=== PATIENT | female | born 1940 | race African-American/Black ===

== ENCOUNTER 2016-12-17 14:48 | Emergency (ER) | payer MEDICARE, OTHER ==
[~2016-12-17] VITALS: Ht 165.1 cm; Wt 98.4 kg
[~2016-12-17 14:48] MED LIST: ADVIL200 MG PO; AMITIZA24 MCG ORAL; ATENOLOL25 MG PO; ATENOLOL50 MG ORAL; BENADRYL50 MG PO; BP med; ENALAPRIL MALEA10 MG ORAL; HYDROCHLOROTHIA25 MG PO; LACTULOSE20 GM/301 ORAL; LEVOTHYROXINE100 MCG ORAL; LINZESS145 MCG PO; METOCLOPRA10 MG/10 M ORAL; MILK OF MA400 MG/51 ORAL; NAPROXEN375 MG ORAL; OMEPRAZOLE20 M2 ORAL; OXYCONTIN20 MG PO; POTASSIUM99 M3 PO; PREDNISONE20 MG PO; PROTONIX40 MG ORAL; REGLAN5 MG ORAL; SYNTHROID100 MCG ORAL; THEOPHYLLI80 MG/151 PO; TRAMADOL HCL50 MG ORAL; [UNRECOGNIZED DRUG - REMARK]
[2016-12-17] MEDS ORDERED: Famotidine 20 MG/ 2ML VIAL IVP ONE (16:15)
[2016-12-17 16:47] LABS: APPEARANCE,URINE CLEAR; KETONES,URINE NEGATIVE (NEGATIVE); LEUKOCYTE ESTERASE ,URINE 3+ (NEGATIVE); NITRITE,URINE NEGATIVE (NEGATIVE); PH,URINE 5 (4.5-8.0); PROTEIN,URINE NEGATIVE (NEGATIVE); UROBILINOGEN,URINE NORMAL MG/DL (0.0-1.0)
[2016-12-17 16:50] VITALS: BP 126/69
[2016-12-17 16:56] LABS: AMORPHOUS SEDIMENT,UR FEW /LPF; BACTERIA,URINE MODERATE /HPF; SQUAMOUS EPITHELIAL CELL,UR FEW /LPF (NONE/OCC)
[2016-12-17 17:25] LABS: BASOPHILS % (AUTO) 2.7 % (0.0-2.0); EOSINOPHILS % (AUTO) 2.3 % (0.0-3.0); LYMPHOCYTES % (AUTO) 40.4 % (20.0-45.0); MEAN CORPUSCULAR HEMOGLOBIN 26.6 PG (27.0-31.0); MEAN CORPUSCULAR HGB CONC 30.4 G/DL (32.0-36.0); MEAN CORPUSCULAR VOLUME 88 FL (80-99); MEAN PLATELET VOLUME 6.9 FL (6.5-10.1); MONOCYTES % (AUTO) 9.3 % (1.0-10.0); NEUTROPHILS % (AUTO) 45.4 % (45.0-75.0); PLATELET COUNT 263 K/UL (150-450); RED BLOOD COUNT 5.03 M/UL (4.20-5.40); RED CELL DISTRIBUTION WIDTH 12.3 % (11.6-14.8); WHITE BLOOD COUNT 7.9 K/UL (4.8-10.8)
[2016-12-17 17:29] LABS: TROPONIN I < 0.30 ng/mL (<=0.30)
[2016-12-17 17:32] LABS: ALANINE AMINOTRANSFERASE 8 U/L (3-33); ALBUMIN/GLOBULIN RATIO 1.2 (1.0-2.7); ANION GAP 16 (5-15); ASPARTATE AMINO TRANSFERASE 13 U/L (5-40); CALCIUM 10.1 mg/dL (8.6-10.2); CARBON DIOXIDE 29 mEQ/L (20-30); CHLORIDE 96 mEQ/L (98-107); CREATININE 0.8 mg/dL (0.5-0.9); HEMOLYSIS 3; LIPASE 37 U/L (< 60); POTASSIUM 3.3 mEQ/L (3.4-4.9); SODIUM 141 mEQ/L (135-145); TOTAL PROTEIN 7.9 g/dL (6.6-8.7)
[2016-12-17 17:43] LABS: CKMB < 1.5 ng/mL (< 3.8)
[2016-12-17] MEDS ORDERED: KEFLEX500 MG ORAL (17:59)
[2016-12-17] MEDS ORDERED: RANITIDINE HCL150 MG ORAL (17:59)
[2016-12-17 18:12] VITALS: BP 121/64
--- NOTE | 2016-12-17 22:40 | Emergency Room Report ---
History of Present Illness General Chief Complaint: Abdominal Pain Source: Patient, Medical Record Present Illness HPI 76-year-old female presents ED complaining of abdominal pain. States symptoms started today. Notes pain which is epigastric, 7/10, sharp, nonradiating. No other aggravating or leading factors. Notes history of ulcers. Denies chest pain or shortness of breath. Notes nausea, denies vomiting. No other aggravating relieving factors. Denies any other associated symptoms. GI is Dr Olson Allergies: Coded Allergies: Cat Dander (Verified Allergy, Severe, 06/19/14) SHORTNESS OF BREATH, SWELLING CODEINE (Verified Allergy, Unknown, 06/19/14) HEADACHES IODINE (Verified Allergy, Unknown, 06/19/14) SWELLING Patient History Past Medical History: HTN, asthma Past Surgical History: none Pertinent Family History: none Social History: Denies: alcohol use, drug use, smoking Now: No Immunizations: UTD Reviewed Nursing Documentation: PMH: Agreed, PSxH: Agreed Nursing Documentation-PMH Hx Hypertension: Yes Hx Pacemaker: No Hx Asthma: Yes Hx COPD: No Hx Diabetes: No Hx Cancer: No Hx Gastrointestinal Problems: Yes Hx Dialysis: No Hx Cerebrovascular Accident: No Hx Seizures: No Hx Headaches: Yes Review of Systems All Other Systems: negative except mentioned in HPI Physical Exam Vital Signs Date Time Temp Pulse Resp B/P Pulse Ox O2 Delivery O2 Flow Rate FiO2 12/17/16 15:19 98.2 64 16 135/76 99 Room Air Sp02 EP Interpretation: reviewed, normal General Appearance: no apparent distress, alert, GCS 15, non-toxic Head: normocephalic, atraumatic Eyes: bilateral eye PERRL, bilateral eye normal inspection ENT: hearing grossly normal, normal pharynx, no angioedema, normal voice Neck: full range of motion, supple/symm/no masses Respiratory: chest non-tender, lungs clear, normal breath sounds, speaking full sentences Cardiovascular #1: regular rate, rhythm, no edema Cardiovascular #2: 2+ carotid (R), 2+ carotid (L), 2+ radial (R), 2+ radial (L) , 2+ dorsalis pedis (R), 2+ dorsalis pedis (L) Gastrointestinal: normal bowel sounds, soft, non-distended, no guarding, no rebound, tenderness - epigastric Rectal: deferred Genitourinary: normal inspection, no CVA tenderness Musculoskeletal: back normal, gait/station normal, normal range of motion, non- tender Neurologic: alert, oriented x3, responsive, motor strength/tone normal, sensory intact, speech normal Psychiatric: judgement/insight normal, memory normal, mood/affect normal, no suicidal/homicidal ideation Reflexes: 3+ bicep (R), 3+ bicep (L), 3+ tricep (R), 3+ tricep (L), 3+ knee (R) , 3+ knee (L) Skin: normal color, no rash, warm/dry, well hydrated Lymphatic: no adenopathy Medical Decision Making Diagnostic Impression: Primary Impression: GERD (gastroesophageal reflux disease) Qualified Codes: K21.9 - Gastro-esophageal reflux disease without esophagitis ER Course Hospital Course 76-year-old F presents to ED with epigastric pain with N/V. differential diagnosis: gastritis, SBO, cholecystits Clinical course Patient placed on stretcher. On manager customer. After initial history and physical I ordered labs, IV fluids, Zofran and pepcid Labs - no leukocytosis, no electrolyte abnormalities, LFTs normal, UA unremarkable EKG - NSR, no acute changes Upon reassessment, patient states pain has improved. findings consistent with gastritis Case discussed with Dr Olson and he agreed patient can be safely discharged home I feel this is a highly complex case requiring extensive working including EKG/ Rhythm strip, Xray/CT/US, Blood/urine lab work, repeat exams while in ED, and administration of strong opiates/narcotics for pain control, admission to hospital or close patient follow up. Diagnosis - GERD Stable and discharged to home with prescriptions for Zantac, zofran. Followup with PMD. Return to ED if symptoms recur or worsen Labs Test 12/17/16 16:20 12/17/16 16:46 Urine Color Pale yellow Urine Appearance Clear Urine pH 5 (4.5-8.0) Urine Specific [place] 1.015 (1.005-1.035) Urine Protein Negative (NEGATIVE) Urine Glucose (UA) Negative (NEGATIVE) Urine Ketones Negative (NEGATIVE) Urine Occult Blood 2+ (NEGATIVE) Urine Nitrite Negative (NEGATIVE) Urine Bilirubin Negative (NEGATIVE) Urine Urobilinogen Normal MG/DL (0.0-1.0) Urine Leukocyte Esterase 3+ (NEGATIVE) Urine RBC 5-10 /HPF (0 - 2) Urine WBC 10-15 /HPF (0 - 2) Urine Squamous Epithelial Cells Few /LPF (NONE/OCC) Urine Amorphous Sediment Few /LPF (NONE) Urine Bacteria Moderate /HPF (NONE) White Blood Count 7.9 K/UL (4.8-10.8) Red Blood Count 5.03 M/UL (4.20-5.40) Hemoglobin 13.4 G/DL (12.0-16.0) Hematocrit 44.1 % (37.0-47.0) Mean Corpuscular Volume 88 FL (80-99) Mean Corpuscular Hemoglobin 26.6 PG (27.0-31.0) Mean Corpuscular Hemoglobin Concent 30.4 G/DL (32.0-36.0) Red Cell Distribution Width 12.3 % (11.6-14.8) Platelet Count 263 K/UL (150-450) Mean Platelet Volume 6.9 FL (6.5-10.1) Neutrophils (%) (Auto) 45.4 % (45.0-75.0) Lymphocytes (%) (Auto) 40.4 % (20.0-45.0) Monocytes (%) (Auto) 9.3 % (1.0-10.0) Eosinophils (%) (Auto) 2.3 % (0.0-3.0) Basophils (%) (Auto) 2.7 % (0.0-2.0) Sodium Level 141 mEQ/L (135-145) Potassium Level 3.3 mEQ/L (3.4-4.9) Chloride Level 96 mEQ/L (98-107) Carbon Dioxide Level 29 mEQ/L (20-30) Anion Gap 16 (5-15) Blood Urea Nitrogen 11 mg/dL (7-23) Creatinine 0.8 mg/dL (0.5-0.9) Estimat Glomerular Filtration Rate mL/min (>60) Glucose Level 104 mg/dL (74-106) Calcium Level 10.1 mg/dL (8.6-10.2) Total Bilirubin 0.5 mg/dL (0.0-1.2) Aspartate Amino Transf (AST/SGOT) 13 U/L (5-40) Alanine Aminotransferase (ALT/SGPT) 8 U/L (3-33) Alkaline Phosphatase 100 U/L (35-104) Creatine Kinase MB < 1.5 ng/mL (< 3.8) Troponin I < 0.30 ng/mL (<=0.30) Total Protein 7.9 g/dL (6.6-8.7) Albumin 4.4 g/dL (3.5-5.2) Globulin 3.5 g/dL Albumin/Globulin Ratio 1.2 (1.0-2.7) Lipase 37 U/L (< 60) EKG Diagnostic Results Rate: normal Rhythm: NSR ST Segments: no acute changes ASA given to the pt in ED: No Rhythm Strip Diag. Results EP Interpretation: yes Rhythm: NSR, no PVC's, no ectopy Last Vital Signs Date Time Temp Pulse Resp B/P Pulse Ox O2 Delivery O2 Flow Rate FiO2 12/17/16 18:12 98.3 68 16 121/64 99 Room Air Status: improved Disposition: HOME, SELF-CARE Condition: Stable Scripts Cephalexin* (KEFLEX*) 500 Mg Capsule 500 MG ORAL Q6H, #28 CAP 0 Refills Prov: TONYA ZELAYA M.D. 12/17/16 Ranitidine Hcl* (ZANTAC*) 150 Mg Tablet 150 MG ORAL TWICE A DAY, #30 TAB Prov: TONYA ZELAYA M.D. 12/17/16 Referrals: NON PHYSICIAN (PCP) Patient Instructions: Gastritis, Adult TONYA ZELAYA M.D. Dec 17, 2016 22:40
--- NOTE | 2016-12-20 14:00 | Cardiology Report ---
APPROVED REPORT EKG Measurement Heart [id number] Normal sinus rhythm Nonspecific T wave abnormality Abnormal ECG
[2016-12-20] MEDS ORDERED: NORCO 10-325 T1 EACH ORAL (14:11)
[2016-12-20] MEDS ORDERED: NORVASC10 MG ORAL (14:11)
[2016-12-24] MEDS ORDERED: AMITIZA24 MCG ORAL (09:50)
== END 2016-12-17 18:14 | disposition home or self-care (01) ==
LOC: EMR 17:00
DX: K21.9 Gastro-esophageal reflux disease without esophagitis (principal); Z88.5 Allergy status to narcotic agent; R10.9 Unspecified abdominal pain; I10 Essential (primary) hypertension; J45.909 Unspecified asthma, uncomplicated; Z87.19 Personal history of other diseases of the digestive system; Z86.69 Personal history of other diseases of the nervous system and sense organs
CPT/HCPCS: 36415; 80053; 81003; 82553; 83690; 84484; 85025; 87086; 93005; 96360; 96374; 96375; 99284; J2405; J7040; S0028

== ENCOUNTER → 2016-12-20 | Outpatient (CLI) | payer MEDICARE, OTHER ==
[~2016-12-20] MED LIST changes: +KEFLEX500 MG ORAL; +NORCO 10-325 T1 EACH ORAL; +NORVASC10 MG ORAL; +RANITIDINE HCL150 MG ORAL
--- NOTE | 2016-12-20 14:09 | GI Progress Note ---
Assessment/Plan Problems: (1) Gastritis ICD Codes: K29.70 - Gastritis, unspecified, without bleeding SNOMED: 1953934 (2) GERD (gastroesophageal reflux disease) ICD Codes: K21.9 - GERD (gastroesophageal reflux disease) SNOMED: 206103229 (3) Chronic back pain ICD Codes: G89.29 - Other chronic pain; M54.9 - Chronic back pain SNOMED: 691889919 (4) Opiate dependence (5) Constipation ICD Codes: K59.00 - Constipation SNOMED: 90668463 Status: unchanged Status Narrative Seen with Dr. Olson. Assessment/Plan EGD scheduled for 12/23/16 - NPO @ MI day prior procedure acknowledged by patient. ordered abdominal U/S r/o gallstone dc amitiza >> trial period Movantik 25 mg PO BID cont prilosec 40 + H2 The patient was seen and examined at bedside and all new and available data was reviewed in the patients chart. I agree with the above findings, impression and plan. (Patient seen earlier today. Signature stamp does not reflect patient encounter time.). -Ignacio Olson MD Subjective Subjective abdominal pain >> epigastric, lower abdomen GERD chronic constipation, amitiza not working >> last BM yesterday large started last tuesday s/p [place] ER visit dx with gastritis >> ranitidine + Keflex s/p EGD/colon 06/2014 >> 2cm HH, gastritis, 1 polyp Objective T 98.5 BP 134/76 P 59 98 RA Denies weight loss General Appearance: no apparent distress, alert, overweight Cardiovascular: normal rate Respiratory/Chest: normal breath sounds, no respiratory distress Abdominal Exam: normal bowel sounds, non tender, soft Extremities: normal range of motion Objective Endoscopy Procedure Note Indication for Procedure: screening colon, GERD Procedures Performed: EGD, colonoscopy Operative Findings/Diagnosis: one polyp, hemorrhoids, gastritis IGNACIO OLSON - Jun 19, 2014 11:47 Deb Lanza N.PVashti Dec 20, 2016 14:09 IGNACIO OLSON Dec 21, 2016 12:42
[2016-12-20 15:24] VITALS: BP 134/76
== END | disposition home or self-care (01) ==
LOC: PAN 13:36
DX: K29.70 Gastritis, unspecified, without bleeding (principal); K21.9 Gastro-esophageal reflux disease without esophagitis; G89.29 Other chronic pain; M54.9 Dorsalgia, unspecified; F11.20 Opioid dependence, uncomplicated; K59.00 Constipation, unspecified
CPT/HCPCS: 99211

== ENCOUNTER → 2016-12-24 | Day surgery (SDC) | payer MEDICARE, OTHER ==
[~2016-12-24] VITALS: Ht 165.1 cm; Wt 98.4 kg
[2016-12-24] VITALS (9 sets, daily range): BP systolic 100–140; BP diastolic 62–85
[~2016-12-24] MED LIST changes: +Hydromorphone 0.5mg/0.5ml inj IVP PRN; +Ketorolac 30mg Inj IV PRN; +Lidocaine 1% MPF 10mg/ml 5ml ONE; +Norco 5mg/325mg tab ORAL PRN; +Propofol 10mg/ml 20ml IV ONE; +fentaNYL 100 mcg/2 mL IV PRN
--- NOTE | 2016-12-24 10:07 | Pre-Procedure Note/Attestation ---
Pre-Procedure Note/Attestation Complete Prior to Procedure Planned Procedure: not applicable Procedure Narrative: egd Indications for Procedure Pre-Operative Diagnosis: gerd Attestation I attest that I discussed the nature of the procedure; its benefits; risks and complications; and alternatives (and the risks and benefits of such alternatives ), prior to the procedure, with the patient (or the patient's legal billing representative). I attest that, if there was a reasonable possibility of needing a blood transfusion, the patient (or the patient's legal billing representative) was given the [facility] standardized written summary, pursuant to the P[place]rez [place]vin Blood Safety Act ([place] Health and Safety Code # 1645, as amended). I attest that I re-evaluated the patient just prior to the surgery and that there has been no change in the patient's H&P, except as documented below: TOMASA KNOWLES Dec 24, 2016 10:07
--- NOTE | 2016-12-24 10:08 | Short Stay Surgery H&P ---
History of Present Illness History of Present Illness Chief Complaint see recent consult note HPI Matias Almonte is a 76 year old female who was admitted on for Abdominal Pain , R/O Gallstones Patient History Allergies: Coded Allergies: Cat Dander (Verified Allergy, Severe, 06/19/14) SHORTNESS OF BREATH, SWELLING CODEINE (Verified Allergy, Unknown, 06/19/14) HEADACHES IODINE (Verified Allergy, Unknown, 06/19/14) SWELLING PAST MEDICAL HISTORY: Past Surgeries: Social History: Medication History Scheduled Amlodipine Besylate (Norvasc), 10 MG ORAL DAILY, (Reported) Atenolol* (Tenormin*), 50 MG ORAL DAILY, (Reported) Hydrochlorothiazide* (Hydrochlorothiazide*), 25 MG PO DAILY, (Reported) Levothyroxine Sodium* (Synthroid*), 150 MCG ORAL DAILY, (Reported) Lubiprostone (Amitiza*), 24 MCG ORAL EVERY 12 HOURS, (Reported) Omeprazole (Omeprazole), 40 MG ORAL DAILY, (Reported) Ranitidine Hcl* (Zantac*), 150 MG ORAL TWICE A DAY Scheduled PRN Hydrocodone Bit/Acetaminophen 10-325* ([place] 10-325*), 1 TAB ORAL Q6H PRN, ( Reported) Miscellaneous Medications Potassium Gluconate (Potassium), 99 MG PO, (Reported) Discontinued Medications Cephalexin* (Keflex*), 500 MG ORAL Q6H Discontinued Reason: Therapy completed Diphenhydramine HCl (Diphenhydramine HCl), 50 MG PO Q6H Discontinued Reason: Therapy completed Lubiprostone (Amitiza*), 24 MCG ORAL DAILY, (Reported) Discontinued Reason: MD discontinued med Tramadol Hcl* (Ultram*), 50 MG ORAL Q6H PRN for For Pain, (Reported) Discontinued Reason: MD discontinued med Physical Exam Vital Signs Last Vital Signs Date Time Temp Pulse Resp B/P Pulse Ox O2 Delivery O2 Flow Rate FiO2 12/24/16 09:21 97.7 60 18 129/72 99 Room Air Plan Attestation Are the patient's medical conditions optimized for surgery? TOMASA KNOWLES Dec 24, 2016 10:08
--- NOTE | 2016-12-24 10:42 | Anethesia Preoperative Eval ---
Anesthesia Pre-op PMH/ROS General Date of Evaluation: Dec 24, 2016 Time of Evaluation: 10:30 Anesthesiologist: Yonis ASA Score: ASA 3 Mallampati Score Class I : Soft palate, uvula, fauces, pillars visible Class II: Soft palate, uvula, fauces visible Class III: Soft palate, base of uvula visible Class IV: Only hard plate visible Mallampati Classification: Class II Surgeon: Wesley Diagnosis: PUD Surgical Procedure: EGD Family History: no anesthesia problems Allergies: Coded Allergies: Cat Dander (Verified Allergy, Severe, 06/19/14) SHORTNESS OF BREATH, SWELLING CODEINE (Verified Allergy, Unknown, 06/19/14) HEADACHES IODINE (Verified Allergy, Unknown, 06/19/14) SWELLING Medications: see eMAR Past Medical History Cardiovascular: Reports: HTN Pulmonary: Reports: asthma Gastrointestinal/Genitourinary: Reports: GERD Neurologic/Psychiatric: Denies: CVA, TIA, dementia, depression/anxiety, other Endocrine: Reports: DM, hypothyroidism HEENT: Reports: cataract (L), cataract (R) Hematology/Immune: Denies: DVT, anemia, bleeding disorder, other Musculoskeletal/Integumentary: Reports: DJD Anesthesia Pre-op Phys. Exam Physician Exam Last Vital Signs Date Time Temp Pulse Resp B/P Pulse Ox O2 Delivery O2 Flow Rate FiO2 12/24/16 09:21 97.7 60 18 129/72 99 Room Air Constitutional: NAD Neurologic: CN 2-12 intact Cardiovascular: RRR Respiratory: CTA NAYAN ALEMAN M.D. Dec 24, 2016 10:42
--- NOTE | 2016-12-24 10:46 | Immediate Post-Op Evaluation ---
Immediate Post-Op Evalulation Immediate Post-Op Evalulation Procedure: EGD Date of Evaluation: Dec 24, 2016 Time of Evaluation: 11:00 IV Fluids: 200 Blood Products: 0 Estimated Blood Loss: 0 Urinary Output: 0 Blood Pressure Systolic: 150 Blood Pressure Diastolic: 80 Pulse Rate: 87 Respiratory Rate: 20 O2 Sat by Pulse Oximetry: 97 Temperature (Fahrenheit): 98 Pain Score (1-10): 2 Nausea: No Vomiting: No Complications na Patient Status: awake Hydration Status: adequate Given Within 1 Hr of Incision: NAYAN Zayas M.D. Dec 24, 2016 10:46
--- NOTE | 2016-12-24 10:47 | Endoscopy Procedure Note ---
Endoscopy Procedure Note Indication for Procedure: gerd Procedures Performed: EGD Operative Findings/Diagnosis: gastritis Specimen: yes Pt Tolerated Procedure Well: Yes Estimated Blood Loss: none Anesthesiologist: colette Anesthesia: MAC Implant(s) used?: No 50 yrs or older w/o bx or poly: Not Applicable 10yrs. F/U not recommended: Not Applicable TOMASA KNOWLES Dec 24, 2016 10:47
--- NOTE | 2016-12-24 10:50 | 48 Hour Post Anesthesia Eval ---
Post Anesthesia Evaluation Procedure: EGD Date of Evaluation: Dec 24, 2016 Time of Evaluation: 12:00 Blood Pressure Systolic: 150 0: 80 Pulse Rate: 87 Respiratory Rate: 20 Temperature (Fahrenheit): 98 O2 Sat by Pulse Oximetry: 97 Airway: patent Nausea: No Vomiting: No Pain Intensity: 2 Hydration Status: adequate Cardiopulmonary Status: Stable Mental Status/LOC: patient returned to baseline Follow-up Care/Observations: na Post-Anesthesia Complications: na Follow-up care needed: N/A NAYAN ALEMAN M.D. Dec 24, 2016 10:50
--- NOTE | 2016-12-24 11:58 | Diagnostic Imaging Report ---
Indication: Abdominal pain Technique: Gallo-scale and duplex images of the upper abdomen were obtained Comparison: CT scan dated 08/18/2013 Findings: . Gallbladder is unremarkable, without stones, wall thickening, nor pericholecystic fluid. . Common bile duct measures 7 mm in diameter. No intrahepatic biliary ductal dilatation. Liver demonstrates diffusely increased echogenicity, consistent with diffuse hepatocellular disease, most likely fatty change.. Portal vein and hepatic veins are patent.. Pancreas is unremarkable. Spleen is unremarkable. Left kidney measures 8.9 cm in length. Right kidney measures 11.6 cm length. Both kidneys demonstrate normal echogenicity. There is no hydronephrosis. Left kidney demonstrates a 1.9 cm cyst. Multiple calculi are seen in the left renal sinus.. . Non-aneurysmal abdominal aorta. Impression: Nonobstructing left renal calculi demonstrated, also described on CT scan of 2012. Negative for hydronephrosis. Left renal cyst, also evident on prior CT. Negative for gallstones or dilated ducts Liver demonstrates equivocally diffusely increased echogenicity, if real then consistent with diffuse hepatocellular disease, most likely fatty change.
--- NOTE | 2016-12-24 19:28 | Procedure Note ---
DATE OF PROCEDURE: 12/24/2016 SURGEON: Ignacio Olson M.D. PROCEDURE: Upper endoscopy with biopsy. ANESTHESIOLOGIST: Joe Somers M.D. INSTRUMENT: Olympus adult flexible upper endoscope. INDICATION: Chronic acid reflux disease. REASON FOR PROCEDURE: The procedure, risks, benefits, and possible consequences, including hemorrhage, aspiration, perforation and infection, and alternative treatments, were explained to the patient/legal guardian by Dr. Ignacio Olson and the patient/legal guardian understood and accepted these risks. DESCRIPTION OF PROCEDURE: After informed consent was obtained and the patient was adequately sedated, Olympus upper endoscope was advanced from mouth into the second portion of the duodenum and retroflexion was performed in the stomach. The patient had diffuse gastritis. Random biopsy from antrum of the stomach was obtained to rule out H. pylori infection. The patient also had medium-sized hiatal hernia with the distal esophageal ring. No evidence of any esophagitis. The patient tolerated the procedure well without any complication. SUMMARY OF FINDINGS: 1. Distal esophageal ring. 2. Medium-sized hiatal hernia. 3. Gastritis, status post biopsy. RECOMMENDATIONS: Followup biopsies and treat accordingly. Ignacio Olson M.D. DR: YIN JOB#: [id number] CC:
== END | disposition home or self-care (01) ==
LOC: GAS 08:43
DX: K21.9 Gastro-esophageal reflux disease without esophagitis (principal); K29.50 Unspecified chronic gastritis without bleeding; K44.9 Diaphragmatic hernia without obstruction or gangrene; K22.2 Esophageal obstruction; I10 Essential (primary) hypertension; J45.909 Unspecified asthma, uncomplicated; E11.9 Type 2 diabetes mellitus without complications; E03.9 Hypothyroidism, unspecified; M19.90 Unspecified osteoarthritis, unspecified site
CPT/HCPCS: 43239; 76700; J2704; 94003; 94150

== ENCOUNTER → 2017-01-03 | Outpatient (CLI) | payer MEDICARE, OTHER ==
[~2017-01-03] MED LIST changes: -Hydromorphone 0.5mg/0.5ml inj IVP PRN; -Ketorolac 30mg Inj IV PRN; -Lidocaine 1% MPF 10mg/ml 5ml ONE; -Norco 5mg/325mg tab ORAL PRN; -Propofol 10mg/ml 20ml IV ONE; -fentaNYL 100 mcg/2 mL IV PRN
--- NOTE | 2017-01-03 14:37 | General Progress Note ---
Assessment/Plan Problem List: (1) GERD (gastroesophageal reflux disease) ICD Codes: K21.9 - GERD (gastroesophageal reflux disease) SNOMED: 515200337 (2) Gastritis ICD Codes: K29.70 - Gastritis, unspecified, without bleeding SNOMED: 3959403 (3) HTN (hypertension) ICD Codes: I10 - HTN (hypertension) SNOMED: 57868576 (4) Constipation ICD Codes: K59.00 - Constipation SNOMED: 83275248 (5) Colon polyp ICD Codes: K63.5 - Colon polyp SNOMED: 57340378 (6) Fatty liver ICD Codes: K76.0 - Fatty (change of) liver, not elsewhere classified SNOMED: 080156494 Assessment/Plan breath test fibroscan rtc after above Subjective ROS Limited/Unobtainable: Yes Allergies: Coded Allergies: Cat Dander (Verified Allergy, Severe, 06/19/14) SHORTNESS OF BREATH, SWELLING CODEINE (Verified Allergy, Unknown, 06/19/14) HEADACHES IODINE (Verified Allergy, Unknown, 06/19/14) SWELLING Subjective c/o abd pain and bloading Objective General Appearance: alert EENT: normal ENT inspection Neck: supple Cardiovascular: normal rate Respiratory/Chest: lungs clear Abdomen: normal bowel sounds, non tender, soft Extremities: non-tender TOMASA KNOWLES Jan 03, 2017 14:37
== END | disposition home or self-care (01) ==
LOC: PAN 14:18
DX: K21.9 Gastro-esophageal reflux disease without esophagitis (principal); K29.70 Gastritis, unspecified, without bleeding; I10 Essential (primary) hypertension; K59.00 Constipation, unspecified; K63.5 Polyp of colon; K76.0 Fatty (change of) liver, not elsewhere classified; Z88.6 Allergy status to analgesic agent; Z91.048 Other nonmedicinal substance allergy status
CPT/HCPCS: 99211

== ENCOUNTER → 2017-02-02 | Outpatient (CLI) | payer MEDICARE, OTHER ==
--- NOTE | 2017-02-02 13:32 | Diagnostic Imaging Report ---
Indication: Chronic low back pain Technique: Sagittal T1 and T2 fast spin echo, sagittal STIR, axial T1 and T2 fast spin-echo images of the lumbar spine Comparison: 12/26/2013 Findings: The bony alignment is normal. Vertebral marrow signal is unremarkable. The vertebral body heights are preserved. The disc spaces are preserved. At T12-L1, L1-L2, L2-3, no significant disc bulge or protrusion, spinal stenosis, or neural foraminal stenosis. At L3-4, there is been minimal circumferential annular bulge, ligamentum flavum, and facet hypertrophy which results in borderline narrowing of the spinal canal. The neural foramina are preserved, although there may be very slight compromise of the left neural foramen by the bulging disc. At L4-5, there is mild circumferential annular bulge. Very short pedicles and marked ligamentum flavum hypertrophy results in severe narrowing of the spinal canal at this level, which is narrowed to 4 mm minimum AP dimension. This is also demonstrated on the previous study. This may be slightly more severe than on the prior study. At L5-S1, there is circumferential annular bulge, as well as right subarticular broad-based posterior disc protrusion, the latter associated with a small high intensity zone within the disc. This results in moderate narrowing of the spinal canal as well as compromise of the right lateral recess and mild narrowing of the neural foramen. The left neural foramen is mildly compromised by the bulging disc. Appearance is similar to the previous exam. The included extraspinal soft tissues are unremarkable. Impression: Severe spinal stenosis at L4-5, also demonstrated previously, may be slightly progressive from prior exam of 12/26/2013. Associated mild left neural foraminal compromise Spinal stenosis and right subarticular broad-based posterior disc protrusion at L5-S1, likely compromising the right lateral recess. Associated high intensity zone within the protruding disc. Appearance is similar to the previous exam Borderline spinal stenosis at L3-4, anomaly due to ligamentum flavum hypertrophy, doubt significant neural compromise at this level. No acute pathology
== END | disposition home or self-care (01) ==
LOC: MRI 10:41
DX: M54.5 Low back pain (principal); G89.29 Other chronic pain; M48.06 Spinal stenosis, lumbar region; M48.07 Spinal stenosis, lumbosacral region
CPT/HCPCS: 72148

== ENCOUNTER 2017-05-18 14:11 | Outpatient (CLI) | payer MEDICARE, OTHER ==
--- NOTE | 2017-05-18 15:14 | GI Progress Note ---
Assessment/Plan Problems: (1) Fatty liver ICD Codes: K76.0 - Fatty (change of) liver, not elsewhere classified SNOMED: 800128350 (2) GERD (gastroesophageal reflux disease) ICD Codes: K21.9 - GERD (gastroesophageal reflux disease) SNOMED: 763968449 (3) Gastritis ICD Codes: K29.70 - Gastritis, unspecified, without bleeding SNOMED: 3746878 (4) Constipation ICD Codes: K59.00 - Constipation SNOMED: 63543882 Status: stable Status Narrative Seen with Dr. Olson. Assessment/Plan ordered breath test f/u Fibro scan cont current bowel regime; Amitiza RTC after BT Subjective Subjective abdominal pain, none today constipation >> Amitiza and takes prn; x-lax and mag citrate foul breath fibroscan performed up stairs last tobacco use 1985 Objective T 97.9 BP 122/68 P 61 98 RA WT 216.5 (9 lbs weight loss in past 3 months) General Appearance: no apparent distress, alert Cardiovascular: normal rate Respiratory/Chest: normal breath sounds, no respiratory distress Abdominal Exam: normal bowel sounds, non tender, soft Extremities: normal range of motion Deb Lanza NHannah May 18, 2017 15:14
== END 2017-05-18 14:55 | disposition home or self-care (01) ==
LOC: PAN 14:11
DX: K76.0 Fatty (change of) liver, not elsewhere classified (principal); K21.9 Gastro-esophageal reflux disease without esophagitis; K29.70 Gastritis, unspecified, without bleeding; K59.00 Constipation, unspecified
CPT/HCPCS: 99211

== ENCOUNTER 2018-02-26 13:23 | Emergency (ER) | payer MEDICARE, OTHER ==
[~2018-02-26] VITALS: Ht 167.6 cm; Wt 77.1 kg
--- NOTE | 2018-02-26 13:56 | Emergency Room Report ---
History of Present Illness General Chief Complaint: Pain Source: Patient Present Illness HPI Patient is a 78-year-old female who presents after increased burning sensation to her chest. Patient reports having increased difficulty with breathing. She reports having recent increased exposure to unknown chemicals. The patient states that she had been the having worsening symptoms with the acid reflux after having her blood pressure medication changed to Norvasc. The patient denies any fever. She denies any increased leg swelling. She denies any chest discomfort with exertion.The patient reports having a prior history of hypertension. She states she's had long-standing gastroesophageal reflux disease as well as irritable bowel syndrome. Allergies: Coded Allergies: Cat Dander (Verified Allergy, Severe, 06/19/14) SHORTNESS OF BREATH, SWELLING IODINE (Verified Allergy, Unknown, 06/19/14) SWELLING Patient History Past Medical History: see triage record Reviewed Nursing Documentation: PMH: Agreed; PSxH: Agreed Nursing Documentation-PMH Hx Cardiac Problems: Yes Hx Hypertension: Yes Hx Pacemaker: No Hx Asthma: Yes Hx COPD: No Hx Diabetes: No Hx Cancer: No Hx Gastrointestinal Problems: Yes Hx Dialysis: No Hx Neurological Problems: No Hx Cerebrovascular Accident: No Hx Seizures: No Hx Headaches: Yes Review of Systems All Other Systems: negative except mentioned in HPI Physical Exam Vital Signs Date Time Temp Pulse Resp B/P (MAP) Pulse Ox O2 Delivery O2 Flow Rate FiO2 02/26/18 13:29 98.1 61 20 125/80 99 Room Air 98.1 Sp02 EP Interpretation: reviewed, normal General Appearance: normal inspection, well appearing, no apparent distress, alert, GCS 15, non-toxic Head: atraumatic ENT: normal ENT inspection, hearing grossly normal, normal voice Neck: normal inspection, full range of motion, supple, no bony tend Respiratory: normal inspection, lungs clear, normal breath sounds, no respiratory distress, no retraction, no wheezing Cardiovascular #1: regular rate, rhythm, no edema Gastrointestinal: normal inspection, normal bowel sounds, non tender, soft, no guarding, no hernia Genitourinary: no CVA tenderness Musculoskeletal: normal inspection, back normal, normal range of motion Neurologic: normal inspection, alert, responsive, speech normal Psychiatric: normal inspection, judgement/insight normal, mood/affect normal Skin: normal inspection, normal color, no rash Medical Decision Making Diagnostic Impression: Primary Impression: GERD (gastroesophageal reflux disease) ER Course Patient presented for chest pain. Differential diagnosis included but was not limited to acute coronary syndrome, pulmonary embolism, pneumonia, aortic dissection, shingles, pneumothorax, aortic dissection, esophageal rupture, pericarditis. Because of complexity of patient's case laboratory testing and imaging studies were ordered. The patient was noted to have increased reflux symptoms. The patient was noted to have recently had her calcium channel konrad changes may be increasingly symptoms. The patient stated that she had been having some the issues with the chemicals from her apartment and requested have further workup. Patient was advised follow-up with her primary care physician for further evaluation and treatment as needed. The chest x-ray showed no evidence of acute infiltrate and patient's oxygen saturation is 100% on room air. The patient is advised to follow up with primary care doctor in 1-2 days. Patient is advised to return if any worsening condition or if any changes in status that are concerning. This report is dictated with [employer] chief business development officer software which may occasionally lead to discrepancies related to use of this software. Labs Test 02/26/18 14:10 White Blood Count 7.6 K/UL (4.8-10.8) Red Blood Count 4.52 M/UL (4.20-5.40) Hemoglobin 12.5 G/DL (12.0-16.0) Hematocrit 40.0 % (37.0-47.0) Mean Corpuscular Volume 88 FL (80-99) Mean Corpuscular Hemoglobin 27.6 PG (27.0-31.0) Mean Corpuscular Hemoglobin Concent 31.2 G/DL (32.0-36.0) Red Cell Distribution Width 11.7 % (11.6-14.8) Platelet Count 293 K/UL (150-450) Mean Platelet Volume 7.3 FL (6.5-10.1) Neutrophils (%) (Auto) 46.4 % (45.0-75.0) Lymphocytes (%) (Auto) 41.0 % (20.0-45.0) Monocytes (%) (Auto) 9.2 % (1.0-10.0) Eosinophils (%) (Auto) 1.9 % (0.0-3.0) Basophils (%) (Auto) 1.5 % (0.0-2.0) Sodium Level 141 MMOL/L (136-145) Potassium Level 3.4 MMOL/L (3.5-5.1) Chloride Level 101 MMOL/L (98-107) Carbon Dioxide Level 32 MMOL/L (21-32) Anion Gap 9 mmol/L (5-15) Blood Urea Nitrogen 14 mg/dL (7-18) Creatinine 0.8 MG/DL (0.55-1.30) Estimat Glomerular Filtration Rate mL/min (>60) Glucose Level 107 MG/DL (74-106) Calcium Level 9.4 MG/DL (8.5-10.1) Total Bilirubin 0.4 MG/DL (0.2-1.0) Aspartate Amino Transf (AST/SGOT) 12 U/L (15-37) Alanine Aminotransferase (ALT/SGPT) 16 U/L (12-78) Alkaline Phosphatase 95 U/L (46-116) Total Creatine Kinase 63 U/L (26-308) Creatine Kinase MB 0.7 NG/ML (0.0-3.6) Creatine Kinase MB Relative Index 1.1 Troponin I 0.000 ng/mL (0.000-0.056) Pro-B-Type Natriuretic Peptide 56 pg/mL (0-125) Total Protein 8.1 G/DL (6.4-8.2) Albumin 3.6 G/DL (3.4-5.0) Globulin 4.5 g/dL Albumin/Globulin Ratio 0.8 (1.0-2.7) EKG Diagnostic Results Rate: normal - 55 Rhythm: NSR ST Segments: no acute changes Last Vital Signs Date Time Temp Pulse Resp B/P (MAP) Pulse Ox O2 Delivery O2 Flow Rate FiO2 02/26/18 13:29 98.1 61 20 125/80 99 Room Air 98.1 Status: improved Disposition: HOME, SELF-CARE Condition: Stable Scripts Dicyclomine Hcl* (DICYCLOMINE HCL*) 10 Mg Capsule 10 MG PO QID, #30 CAP Prov: Vicente Solorzano MD 02/26/18 Referrals: Marty Verdugo MD (PCP) Vicente Solorzano MD February 26, 2018 13:55
[2018-02-26] MEDS ORDERED: Lidocaine 2% Visc 15ml soln ORAL ONE (14:00)
[2018-02-26] MEDS ORDERED: Mylanta II UD 30ml ORAL ONE (14:00)
[2018-02-26] MEDS ORDERED: Pantoprazole Inj IVP ONE (14:00)
[2018-02-26] MEDS ORDERED: Dicyclomine HCl 10mg/5ml oral soln ORAL ONE (14:00)
[2018-02-26 14:28] LABS: BASOPHILS % (AUTO) 1.5 % (0.0-2.0); EOSINOPHILS % (AUTO) 1.9 % (0.0-3.0); HEMOGLOBIN 12.5 G/DL (12.0-16.0); MEAN CORPUSCULAR VOLUME 88 FL (80-99); MONOCYTES % (AUTO) 9.2 % (1.0-10.0); NEUTROPHILS % (AUTO) 46.4 % (45.0-75.0); PLATELET COUNT 293 K/UL (150-450); RED BLOOD COUNT 4.52 M/UL (4.20-5.40); RED CELL DISTRIBUTION WIDTH 11.7 % (11.6-14.8); WHITE BLOOD COUNT 7.6 K/UL (4.8-10.8)
[2018-02-26 14:45] VITALS: BP 125/80
[2018-02-26 15:07] LABS: ANION GAP 9 mmol/L (5-15); BLOOD UREA NITROGEN 14 mg/dL (7-18); CALCIUM 9.4 MG/DL (8.5-10.1); CARBON DIOXIDE 32 MMOL/L (21-32); CHLORIDE 101 MMOL/L (98-107); CREATININE 0.8 MG/DL (0.55-1.30); POTASSIUM 3.4 MMOL/L (3.5-5.1); SODIUM 141 MMOL/L (136-145)
[2018-02-26 15:21] LABS: ALANINE AMINOTRANSFERASE 16 U/L (12-78); ALBUMIN 3.6 G/DL (3.4-5.0); ALBUMIN/GLOBULIN RATIO 0.8 (1.0-2.7); ALKALINE PHOSPHATASE 95 U/L (46-116); ASPARTATE AMINO TRANSFERASE 12 U/L (15-37); BILIRUBIN,TOTAL 0.4 MG/DL (0.2-1.0); CKMB 0.7 NG/ML (0.0-3.6); CREATINE KINASE 63 U/L (26-308)
[2018-02-26] MEDS ORDERED: DICYCLOMINE HCL10 MG PO (15:37)
[2018-02-26 15:50] VITALS: BP 125/80
--- NOTE | 2018-02-27 10:57 | Diagnostic Imaging Report ---
Indication: Dyspnea Comparison: 07/16/2008 A single view chest radiograph was obtained. Findings: No definite infiltrate or pulmonary vascular congestion identified. The heart is enlarged. The aorta is mildly enlarged consistent with atherosclerotic vascular disease. The bones are osteopenic. Impression: No acute disease
--- NOTE | 2018-02-27 13:51 | Cardiology Report ---
APPROVED REPORT EKG Measurement Heart [id number] ME [id number] [id number] Sinus bradycardia Otherwise normal ECG
== END 2018-02-26 15:55 | disposition home or self-care (01) ==
LOC: EMR 13:40
DX: K21.9 Gastro-esophageal reflux disease without esophagitis (principal); I10 Essential (primary) hypertension; J45.909 Unspecified asthma, uncomplicated
CPT/HCPCS: 36415; 71045; 80053; 82550; 82553; 83880; 84484; 85025; 93005; 96374; 99283; C9113

== ENCOUNTER 2018-02-28 09:16 | Outpatient (CLI) | payer MEDICARE, OTHER ==
[~2018-02-28 09:16] MED LIST changes: +DICYCLOMINE HCL10 MG PO
[2018-02-28 09:40] VITALS: BP 157/87
--- NOTE | 2018-02-28 17:47 | GI Progress Note ---
Assessment/Plan Problems: (1) GERD (gastroesophageal reflux disease) ICD Codes: K21.9 - GERD (gastroesophageal reflux disease) SNOMED: 519272420 (2) Gastritis ICD Codes: K29.70 - Gastritis, unspecified, without bleeding SNOMED: 5835365 (3) Constipation ICD Codes: K59.00 - Constipation SNOMED: 65938929 (4) Asthma ICD Codes: J45.909 - Asthma SNOMED: 103545965 (5) Fatty liver ICD Codes: K76.0 - Fatty (change of) liver, not elsewhere classified SNOMED: 041954184 (6) Chronic back pain ICD Codes: G89.29 - Other chronic pain; M54.9 - Chronic back pain SNOMED: 927610241 Status: stable Status Narrative Seen with Dr. Olson. Assessment/Plan Rx Dexilant Rx Bentyl continue amitiza, will consider movantik if no relief given history of chronic back pain and opioid use RTC x 1 month The patient was seen and examined at bedside and all new and available data was reviewed in the patients chart. I agree with the above findings, impression and plan. (Patient seen earlier today. Signature stamp does not reflect patient encounter time.). - Ignacio Olson MD Subjective Subjective GERD, taking omeprazole constipation, taking amitiza did not have Breath Test or Fibroid scan done Had recent admission to ER for SOB, severe reflux Objective Last 24 Hour Vital Signs Date Time Temp Pulse Resp B/P (MAP) Pulse Ox O2 Delivery O2 Flow Rate FiO2 02/28/18 09:40 97.4 97 157/87 97 97.4 General Appearance: WD/WN, no apparent distress, alert Cardiovascular: normal rate Respiratory/Chest: normal breath sounds, no respiratory distress Abdominal Exam: normal bowel sounds, non tender, soft Extremities: normal range of motion, non-tender Camila Lanza [employer] February 28, 2018 17:47
== END 2018-02-28 09:48 | disposition home or self-care (01) ==
LOC: PAN 09:16
DX: K21.9 Gastro-esophageal reflux disease without esophagitis (principal); K29.70 Gastritis, unspecified, without bleeding; K59.00 Constipation, unspecified; J45.909 Unspecified asthma, uncomplicated; K76.0 Fatty (change of) liver, not elsewhere classified; G89.29 Other chronic pain
CPT/HCPCS: 99212

== ENCOUNTER 2018-03-05 06:08 | Emergency (ER) | payer MEDICARE, OTHER ==
[~2018-03-05] VITALS: Ht 165.1 cm; Wt 98.0 kg
[2018-03-05] MEDS ORDERED: HYDROCHLOROTHIA25 MG ORAL (06:17)
[2018-03-05] MEDS ORDERED: DEXILANT60 MG ORAL (06:17)
[2018-03-05 06:28] VITALS: BP 134/79
--- NOTE | 2018-03-05 06:41 | Emergency Room Report ---
History of Present Illness General Chief Complaint: Abdominal Pain Source: Patient Present Illness HPI Patient is a 78-year-old female who presented after increased abdominal discomfort. Patient prior history of irritable bowel disease. Patient had been taking medications for constipation. Patient had been seen by GI after the recent visit to the emergency department for similar symptoms. Patient reports having worsened the discomfort. She reports having bowel movement yesterday however denies having bowel movements two prior days. Patient denies any bloody stools. The patient states that she had not been vomiting. She reported having some mild nausea. Patient had discontinued use of Norvasc Allergies: Coded Allergies: Cat Dander (Verified Allergy, Severe, 06/19/14) SHORTNESS OF BREATH, SWELLING IODINE (Verified Allergy, Unknown, 06/19/14) SWELLING Patient History Past Medical History: see triage record Now: No Reviewed Nursing Documentation: PMH: Agreed; PSxH: Agreed Nursing Documentation-PMH Hx Hypertension: Yes Hx Pacemaker: No Hx Asthma: Yes Hx COPD: No Hx Diabetes: No Hx Cancer: No Hx Gastrointestinal Problems: Yes - Colon resection Hx Dialysis: No Hx Neurological Problems: No Hx Cerebrovascular Accident: No Hx Seizures: No Hx Headaches: Yes Review of Systems All Other Systems: negative except mentioned in HPI Physical Exam Vital Signs Date Time Temp Pulse Resp B/P (MAP) Pulse Ox O2 Delivery O2 Flow Rate FiO2 03/05/18 06:11 97.6 61 14 134/79 97 Room Air 97.5 Sp02 EP Interpretation: reviewed, normal General Appearance: normal inspection, well appearing, no apparent distress, alert, GCS 15, obese Head: atraumatic ENT: normal ENT inspection, hearing grossly normal, normal voice Neck: normal inspection, full range of motion, supple, no bony tend Respiratory: normal inspection, lungs clear, normal breath sounds, no respiratory distress, no retraction, no wheezing Cardiovascular #1: regular rate, rhythm, no edema Gastrointestinal: soft, distended Genitourinary: no CVA tenderness Musculoskeletal: normal inspection, back normal, normal range of motion Neurologic: normal inspection, alert, oriented x3, responsive, cooperative extension agent III-XII nml as tested, speech normal Psychiatric: normal inspection, judgement/insight normal, mood/affect normal Skin: normal inspection, normal color, no rash Medical Decision Making Diagnostic Impression: Primary Impression: Constipation Additional Impression: Gastritis ER Course Patient presented for abdominal pain. Differential diagnoses included but was not limited to bowel obstruction, ileus, ischemic bowel, appendicitis, perforated viscus, abdominal aortic aneurysm, inferior myocardial infarction, viral gastroenteritis. KUB read by radiology showed no evidence of obstruction and normal bowel gas pattern. The patient was given Mylanta in the emergency department. Patient is given prescription for simethicone. The patient is advised to follow-up with Dr. Olson fo further GI the studies as needed.. Patient is advised to return if any worsening condition or if any changes in status that are concerning. This report is dictated with [employer] aeronautical test engineer software which may occasionally lead to discrepancies related to use of this software. Last Vital Signs Date Time Temp Pulse Resp B/P (MAP) Pulse Ox O2 Delivery O2 Flow Rate FiO2 03/05/18 06:28 97.5 61 14 134/79 97 Room Air 97.5 Status: improved Disposition: HOME, SELF-CARE Condition: Stable Scripts Simethicone* (SIMETHICONE*) 80 Mg Tab.chew 80 MG ORAL Q8H PRN for GAS PAIN, #20 TAB 0 Refills Prov: Vicente Solorzano MD 03/05/18 Referrals: Marty Verdugo MD (PCP) Vicente Solorzano MD March 05, 2018 06:41
[2018-03-05] MEDS ORDERED: SIMETHICONE80 MG ORAL (06:54)
[2018-03-05] MEDS ORDERED: Simethicone 80mg tab ORAL ONE (07:00)
[2018-03-05 07:01] VITALS: BP 134/79
--- NOTE | 2018-03-05 07:31 | Diagnostic Imaging Report ---
EXAM: XR Abdomen Complete, 2 or More Views. CLINICAL HISTORY: Abdominal distention. TECHNIQUE: Frontal view of the abdomen/pelvis with upright view of the abdomen. COMPARISON: 2 FINDINGS: Free air: No gross pneumoperitoneum. Gastrointestinal tract: Bowel gas pattern is nonobstructive. Normal gaseous distention of the colon. Bones: No acute fracture. IMPRESSION: No evidence of bowel obstruction or pneumoperitoneum.
== END 2018-03-05 07:00 | disposition home or self-care (01) ==
LOC: EMR 06:34
DX: K59.00 Constipation, unspecified (principal); K29.70 Gastritis, unspecified, without bleeding; I10 Essential (primary) hypertension; J45.909 Unspecified asthma, uncomplicated
CPT/HCPCS: 74018; 99283

== ENCOUNTER 2018-03-09 13:26 | Emergency (ER) | payer MEDICARE, OTHER ==
[~2018-03-09] VITALS: Ht 165.1 cm; Wt 99.8 kg
[~2018-03-09 13:26] MED LIST changes: +DEXILANT60 MG ORAL; +HYDROCHLOROTHIA25 MG ORAL; +SIMETHICONE80 MG ORAL
[2018-03-09 14:00] VITALS: BP 141/93
[2018-03-09] MEDS ORDERED: Dicyclomine 10mg Cap ORAL ONE (14:00)
[2018-03-09 14:16] LABS: BASOPHILS % (AUTO) 1.6 % (0.0-2.0); EOSINOPHILS % (AUTO) 0.9 % (0.0-3.0); LYMPHOCYTES % (AUTO) 48.3 % (20.0-45.0); MEAN CORPUSCULAR VOLUME 88 FL (80-99); MONOCYTES % (AUTO) 7.4 % (1.0-10.0); NEUTROPHILS % (AUTO) 41.8 % (45.0-75.0); PLATELET COUNT 297 K/UL (150-450); RED BLOOD COUNT 5.09 M/UL (4.20-5.40); RED CELL DISTRIBUTION WIDTH 11.6 % (11.6-14.8)
[2018-03-09 14:17] LABS: BILIRUBIN, URINE NEGATIVE (NEGATIVE); GLUCOSE, URINE (UA) NEGATIVE (NEGATIVE); KETONES,URINE NEGATIVE (NEGATIVE); LEUKOCYTE ESTERASE ,URINE 1+ (NEGATIVE); NITRITE,URINE NEGATIVE (NEGATIVE); PH,URINE 5 (4.5-8.0); PROTEIN,URINE NEGATIVE (NEGATIVE); UROBILINOGEN,URINE NORMAL MG/DL (0.0-1.0)
[2018-03-09 14:23] LABS: APPEARANCE,URINE SLIGHTLY CLOUDY; COLOR,URINE YELLOW
[2018-03-09 14:29] LABS: ANION GAP 10 mmol/L (5-15); BLOOD UREA NITROGEN 39 mg/dL (7-18); CARBON DIOXIDE 27 MMOL/L (21-32); CHLORIDE 101 MMOL/L (98-107); CREATININE 1.3 MG/DL (0.55-1.30); POTASSIUM 4.6 MMOL/L (3.5-5.1); SODIUM 137 MMOL/L (136-145)
[2018-03-09 14:33] LABS: ALANINE AMINOTRANSFERASE 18 U/L (12-78); ALBUMIN 4.3 G/DL (3.4-5.0); ALBUMIN/GLOBULIN RATIO 0.9 (1.0-2.7); ALKALINE PHOSPHATASE 108 U/L (46-116); ASPARTATE AMINO TRANSFERASE 12 U/L (15-37); BILIRUBIN,TOTAL 0.4 MG/DL (0.2-1.0)
--- NOTE | 2018-03-09 14:59 | Emergency Room Report ---
History of Present Illness General Chief Complaint: Abdominal Pain Source: Patient Present Illness HPI Patient is a 78-year-old female who presented after increased left lower quadrant abdominal pain. Patient had prior history of irritable bowel disease. The patient had recently been seen by me for similar symptoms. The patient was noted to have a prior history of gastroesophageal reflux disease. She reports having acute onset of pain approximately 20 minutes prior to arrival. This described as a sharp sensation to the left lower abdomen. The pain did not radiate. Patient had no associated nausea vomiting or diarrhea.The patient been followed by Dr. Olson for GI. The patient reports previously been treated for urinary tract infection by Dr. Verdugo Allergies: Coded Allergies: Cat Dander (Verified Allergy, Severe, 06/19/14) SHORTNESS OF BREATH, SWELLING IODINE (Verified Allergy, Unknown, 06/19/14) SWELLING Patient History Past Medical History: see triage record Reviewed Nursing Documentation: PMH: Agreed; PSxH: Agreed Nursing Documentation-PMH Hx Hypertension: Yes Hx Pacemaker: No Hx Asthma: Yes Hx COPD: No Hx Diabetes: No Hx Cancer: No Hx Gastrointestinal Problems: Yes - Colon resection Hx Dialysis: No Hx Neurological Problems: No Hx Cerebrovascular Accident: No Hx Seizures: No Hx Headaches: Yes Review of Systems All Other Systems: negative except mentioned in HPI Physical Exam Vital Signs Date Time Temp Pulse Resp B/P (MAP) Pulse Ox O2 Delivery O2 Flow Rate FiO2 03/09/18 13:35 97.9 71 20 140/85 99 Room Air 97.9 Sp02 EP Interpretation: reviewed, normal General Appearance: normal inspection, well appearing, no apparent distress, alert, GCS 15, obese, other Head: atraumatic ENT: normal ENT inspection, hearing grossly normal, normal voice Neck: normal inspection, full range of motion, supple, no bony tend Respiratory: normal inspection, lungs clear, normal breath sounds, no respiratory distress, no retraction, no wheezing Cardiovascular #1: regular rate, rhythm, no edema Gastrointestinal: normal inspection, normal bowel sounds, non tender, soft, no guarding, no hernia, tenderness - left lower abdomen, no guarding or rebound Genitourinary: no CVA tenderness Musculoskeletal: normal inspection, back normal, normal range of motion Neurologic: normal inspection, alert, oriented x3, responsive, health management consultant III-XII nml as tested, motor strength/tone normal, speech normal Psychiatric: normal inspection, judgement/insight normal, mood/affect normal Skin: normal inspection, normal color, no rash Medical Decision Making Diagnostic Impression: Primary Impression: Calculus of left kidney Additional Impression: GERD (gastroesophageal reflux disease) ER Course Patient presented for abdominal pain. Differential diagnoses included ischemic bowel, appendicitis, perforated viscus, abdominal aortic aneurysm, inferior myocardial infarction, viral gastroenteritis Because of complexity of patient's case laboratory testing and imaging studies were ordered.The patient was noted to have normal white blood count as well as normal hemoglobin.CT the abdomen pelvis was ordered due to patient's increased pain.The CT was done without contrast due to patient's iodine allergy. The CT of abdomen and pelvis read by radiology showed large left renal calculus. The does not appear to be obstructing. The bowel gas pattern is nonspecific. The patient was advised follow-up with Dr. Olson. The patient was also advised follow-up with Dr. Verdugo next week. The patient was advised to call Dr. Verdugo 's office for urologist contact information Labs Test 03/09/18 13:40 White Blood Count 7.0 K/UL (4.8-10.8) Red Blood Count 5.09 M/UL (4.20-5.40) Hemoglobin 14.0 G/DL (12.0-16.0) Hematocrit 45.0 % (37.0-47.0) Mean Corpuscular Volume 88 FL (80-99) Mean Corpuscular Hemoglobin 27.5 PG (27.0-31.0) Mean Corpuscular Hemoglobin Concent 31.1 G/DL (32.0-36.0) Red Cell Distribution Width 11.6 % (11.6-14.8) Platelet Count 297 K/UL (150-450) Mean Platelet Volume 6.9 FL (6.5-10.1) Neutrophils (%) (Auto) 41.8 % (45.0-75.0) Lymphocytes (%) (Auto) 48.3 % (20.0-45.0) Monocytes (%) (Auto) 7.4 % (1.0-10.0) Eosinophils (%) (Auto) 0.9 % (0.0-3.0) Basophils (%) (Auto) 1.6 % (0.0-2.0) Prothrombin Time 10.2 SEC (9.30-11.50) Prothromb Time International Ratio 1.0 (0.9-1.1) Activated Partial Thromboplast Time 26 SEC (23-33) Urine Color Yellow Urine Appearance Slightly cloudy Urine pH 5 (4.5-8.0) Urine Specific [place] 1.020 (1.005-1.035) Urine Protein Negative (NEGATIVE) Urine Glucose (UA) Negative (NEGATIVE) Urine Ketones Negative (NEGATIVE) Urine Occult Blood 1+ (NEGATIVE) Urine Nitrite Negative (NEGATIVE) Urine Bilirubin Negative (NEGATIVE) Urine Urobilinogen Normal MG/DL (0.0-1.0) Urine Leukocyte Esterase 1+ (NEGATIVE) Urine RBC 5-10 /HPF (0 - 2) Urine WBC 5-10 /HPF (0 - 2) Urine Squamous Epithelial Cells Few /LPF (NONE/OCC) Urine Bacteria Few /HPF (NONE) Urine Hyaline Casts 2-4 /LPF (NONE) Sodium Level 137 MMOL/L (136-145) Potassium Level 4.6 MMOL/L (3.5-5.1) Chloride Level 101 MMOL/L (98-107) Carbon Dioxide Level 27 MMOL/L (21-32) Anion Gap 10 mmol/L (5-15) Blood Urea Nitrogen 39 mg/dL (7-18) Creatinine 1.3 MG/DL (0.55-1.30) Estimat Glomerular Filtration Rate mL/min (>60) Glucose Level 108 MG/DL (74-106) Calcium Level 10.0 MG/DL (8.5-10.1) Total Bilirubin 0.4 MG/DL (0.2-1.0) Aspartate Amino Transf (AST/SGOT) 12 U/L (15-37) Alanine Aminotransferase (ALT/SGPT) 18 U/L (12-78) Alkaline Phosphatase 108 U/L (46-116) Total Protein 9.2 G/DL (6.4-8.2) Albumin 4.3 G/DL (3.4-5.0) Globulin 4.9 g/dL Albumin/Globulin Ratio 0.9 (1.0-2.7) Lipase 212 U/L (73-393) EKG Diagnostic Results Rate: normal - 65 Rhythm: NSR ST Segments: no acute changes Rhythm Strip Diag. Results EP Interpretation: yes Rhythm: NSR, no PVC's, no ectopy, other Last Vital Signs Date Time Temp Pulse Resp B/P (MAP) Pulse Ox O2 Delivery O2 Flow Rate FiO2 03/09/18 14:00 97.9 63 13 141/93 100 Room Air 97.9 Status: improved Disposition: HOME, SELF-CARE Condition: Stable Scripts Cephalexin* (KEFLEX*) 500 Mg Capsule 500 MG ORAL EVERY 6 HOURS, #28 CAP Prov: Vicente Solorzano MD 03/09/18 Vicente Solorzano MD March 09, 2018 14:59
[2018-03-09] MEDS ORDERED: CEPHALEXIN500 MG ORAL (15:05)
--- NOTE | 2018-03-09 15:18 | Diagnostic Imaging Report ---
Indication: Abdominal pain Technique: Continuous helical transaxial imaging of the abdomen and pelvis was obtained from the lung bases to the pubic symphysis. No intravenous contrast was administered. Coronal 2-D reformats were also obtained. Automatic Exposure Control was utilized. Total Dose length Product (DLP): 1012.[address] Dose Index Volume (CTDIvol): 19.28 mGy Comparison: 08/18/2013 Findings: The lung bases appear clear. There is a large nonobstructive stone lower pole the left kidney measuring approximately 1.3 cm. There is no hydronephrosis. This was seen previously also is unchanged in appearance. No new stones are identified. Gallbladder is contracted. Arterial calcifications are present. No bowel obstruction, free fluid or free air identified. Hypodensity in the left kidney again noted probably cystic although not evaluated adequately on the current study which is done without contrast material. The bladder is nondistended. Uterus is not seen. IMPRESSION: No change compared to the prior study. Large nonobstructive stone in the left kidney. Hypodensity left kidney not adequately evaluated unchanged from the last study. Status post hysterectomy. Atherosclerotic disease. Other incidental findings as above The CT scanner at [facility] is accredited by the [employer] and the scans are performed using dose optimization techniques as appropriate to a performed exam including Automatic Exposure control.
[2018-03-09 16:18] VITALS: BP 133/78
--- NOTE | 2018-03-12 17:22 | Cardiology Report ---
APPROVED REPORT EKG Measurement Heart [id number] NC 162P24 [id number] Normal sinus rhythm Normal ECG
== END 2018-03-09 16:19 | disposition home or self-care (01) ==
LOC: EMR 15:01
DX: N20.0 Calculus of kidney (principal); K21.9 Gastro-esophageal reflux disease without esophagitis; Z90.710 Acquired absence of both cervix and uterus; I10 Essential (primary) hypertension; J45.909 Unspecified asthma, uncomplicated
CPT/HCPCS: 36415; 74176; 80053; 81003; 82962; 83690; 85025; 85610; 85730; 93005; 99284

== ENCOUNTER 2018-03-16 13:18 | Outpatient (CLI) | payer MEDICARE, OTHER ==
[~2018-03-16 13:18] MED LIST changes: +CEPHALEXIN500 MG ORAL
--- NOTE | 2018-03-16 16:35 | GI Progress Note ---
Assessment/Plan Problems: (1) GERD (gastroesophageal reflux disease) ICD Codes: K21.9 - GERD (gastroesophageal reflux disease) SNOMED: 558812940 (2) Constipation ICD Codes: K59.00 - Constipation SNOMED: 38990624 Status: stable Status Narrative Seen with Dr. Olson. Assessment/Plan Non contrast CT reviewed. US 2016 CLN 2013 EGD 2016 >> HH Scheduled colonoscopy 03/20/18. - CLD & (Nulytely/Suprep/Movi-Prep) prep instructions given and acknowledged by patient. - NPO @ CO day prior procedure explained. The patient was seen and examined at bedside and all new and available data was reviewed in the patients chart. I agree with the above findings, impression and plan. (Patient seen earlier today. Signature stamp does not reflect patient encounter time.). - Ignacio Olson MD Subjective Subjective Abdominal pain, LUQ, LLQ, epigastric HH Constipation was given dexilant and bentyl 20 last visit Objective T 98.1 BP 131/75 P 56 97 RA General Appearance: WD/WN, no apparent distress, alert Cardiovascular: normal rate Respiratory/Chest: normal breath sounds, no respiratory distress Abdominal Exam: normal bowel sounds, non tender, soft Extremities: normal range of motion, non-tender Camila Lanza NP Mar 16, 2018 16:35
== END 2018-03-16 13:50 | disposition home or self-care (01) ==
LOC: PAN 13:18
DX: K21.9 Gastro-esophageal reflux disease without esophagitis (principal); K59.00 Constipation, unspecified
CPT/HCPCS: 99211

== ENCOUNTER 2018-03-20 08:09 | Day surgery (SDC) | payer MEDICARE, OTHER ==
[2018-03-20] VITALS (9 sets, daily range): BP systolic 130–152; BP diastolic 70–83
[~2018-03-20] VITALS: Ht 165.1 cm; Wt 95.7 kg
[~2018-03-20 08:09] MED LIST changes: +Atropine Inj 1mg/10ml Syr IV PRN; +DiphenhydrAMINE 50mg/ml Inj IVP PRN; +Midazolam 2mg/2ml Inj IVP PRN; +fentaNYL 100 mcg/2 mL IV PRN
[2018-03-20] MEDS ORDERED: Atropine Sulfate 0.4mg/ml inj ONE (08:10)
[2018-03-20] MEDS ORDERED: Lidocaine 1% MPF 10mg/ml 5ml ONE (08:10)
[2018-03-20] MEDS ORDERED: Propofol 200mg/20ml IV ONE (08:10)
--- NOTE | 2018-03-20 09:46 | Pre-Procedure Note/Attestation ---
Pre-Procedure Note/Attestation Complete Prior to Procedure Planned Procedure: not applicable Procedure Narrative: colonoscopy Indications for Procedure Pre-Operative Diagnosis: screening, constipation Attestation I attest that I discussed the nature of the procedure; its benefits; risks and complications; and alternatives (and the risks and benefits of such alternatives ), prior to the procedure, with the patient (or the patient's legal footwear sales representative). I attest that, if there was a reasonable possibility of needing a blood transfusion, the patient (or the patient's legal footwear sales representative) was given the [facility] standardized written summary, pursuant to the [place] Blood Safety Act ([place] Health and Safety Code # 1645, as amended). I attest that I re-evaluated the patient just prior to the surgery and that there has been no change in the patient's H&P, except as documented below: Ignacio Olson MD Mar 20, 2018 09:46
--- NOTE | 2018-03-20 09:47 | Short Stay Surgery H&P ---
History of Present Illness History of Present Illness Chief Complaint screening colon, constipation HPI Matias Almonte is a 78 year old female who was admitted on for Constipation Patient History Allergies: Coded Allergies: Cat Dander (Verified Allergy, Severe, 03/20/18) SHORTNESS OF BREATH, THROAT CLOSING, LIPS SWELLING IODINE (Verified Allergy, Intermediate, 03/20/18) NECK SWELLING PAST MEDICAL HISTORY: (1) GERD (gastroesophageal reflux disease) (2) Gastritis (3) Calculus of left kidney (4) Constipation Medication History Scheduled Atenolol* (Tenormin*), 100 MG ORAL DAILY, (Reported) Hydrochlorothiazide* (Hydrochlorothiazide*), 25 MG PO DAILY, (Reported) Levothyroxine Sodium* (Synthroid*), 150 MCG ORAL DAILY, (Reported) Lubiprostone (Amitiza*), 24 MCG ORAL EVERY 12 HOURS, (Reported) Omeprazole (Omeprazole), 40 MG ORAL DAILY, (Reported) Scheduled PRN Hydrocodone Bit/Acetaminophen 10-325* ([place] 10-325*), 1 TAB ORAL Q6H PRN, ( Reported) Miscellaneous Medications Potassium Gluconate (Potassium), 99 MG PO, (Reported) Discontinued Medications Amlodipine Besylate (Norvasc), 10 MG ORAL DAILY, (Reported) Discontinued Reason: Pt stopped taking med Cephalexin* (Keflex*), 500 MG ORAL EVERY 6 HOURS Discontinued Reason: Pt stopped taking med Dexlansoprazole (Dexilant), 60 MG ORAL DAILY, (Reported) Discontinued Reason: Pt stopped taking med Dicyclomine Hcl* (Dicyclomine Hcl*), 10 MG PO QID Discontinued Reason: Pt stopped taking med Simethicone* (Simethicone*), 80 MG ORAL Q8H PRN for GAS PAIN Discontinued Reason: Pt stopped taking med Review of Systems Cardiovascular: Reports: no symptoms Respiratory: Reports: no symptoms Skeletal: Reports: no symptoms Gastrointestinal: Reports: no symptoms Genitourinary: Reports: no symptoms Neurologic: Reports: no symptoms Endocrine: Reports: no symptoms Hematologic: Reports: no symptoms Physical Exam Vital Signs Last Vital Signs Date Time Temp Pulse Resp B/P (MAP) Pulse Ox O2 Delivery O2 Flow Rate FiO2 03/20/18 08:54 97.7 58 18 130/73 98 Room Air 97.7 Skin: normal HENT: normal Heart: normal Lungs: normal Abdomen: normal Extremities: normal Plan Plan of Care colonoscopy Attestation Are the patient's medical conditions optimized for surgery? Attestation Response: yes Ignacio Olson MD Mar 20, 2018 09:47
--- NOTE | 2018-03-20 10:21 | Endoscopy Procedure Note ---
Endoscopy Procedure Note General Indication for Procedure: screening colon, constipation Procedures Performed: colonoscopy Operative Findings/Diagnosis: one polyp Specimen: yes Pt Tolerated Procedure Well: Yes Estimated Blood Loss: none Anesthesia Anesthesiologist: salo Anesthesia: MAC Inserted Devices Implant(s) used?: No Quality Quality of Bowel Preparation: Excellent Did scope reach the cecum?: Yes Was there any complications?: No GI Core Measures 50 yrs or older w/o bx or poly: No 10yrs. F/U not recommended: Yes If not recommended, why?: Above average risk 10 yrs. F/U needed: Yes 18 years or older w/prev. colo: Yes <3yrs. since last colonoscopy: No Ignacio Olson MD Mar 20, 2018 10:21
--- NOTE | 2018-03-20 10:55 | Anethesia Preoperative Eval ---
Anesthesia Pre-op PMH/ROS General Date of Evaluation: Mar 20, 2018 Time of Evaluation: 07:00 Anesthesiologist: salo ASA Score: ASA 3 Mallampati Score Class I : Soft palate, uvula, fauces, pillars visible Class II: Soft palate, uvula, fauces visible Class III: Soft palate, base of uvula visible Class IV: Only hard plate visible Mallampati Classification: Class II Surgeon: kayy Diagnosis: constipation, abdominal pain Surgical Procedure: colonoscopy Anesthesia History: none Family History: no anesthesia problems Allergies: Coded Allergies: Cat Dander (Verified Allergy, Severe, 03/20/18) SHORTNESS OF BREATH, THROAT CLOSING, LIPS SWELLING IODINE (Verified Allergy, Intermediate, 03/20/18) NECK SWELLING Medications: see eMAR Past Medical History Cardiovascular: Reports: HTN Pulmonary: Reports: asthma Gastrointestinal/Genitourinary: Reports: GERD, other - , gastritis Anesthesia Pre-op Phys. Exam Physician Exam Last Vital Signs Date Time Temp Pulse Resp B/P (MAP) Pulse Ox O2 Delivery O2 Flow Rate FiO2 03/20/18 10:37 55 20 150/83 100 Room Air 03/20/18 10:27 97.8 8.0 97.8 Constitutional: NAD Neurologic: CN 2-12 intact Cardiovascular: RRR Respiratory: CTA Gastrointestinal: S/NT/ND Airway Exam Mallampati Score: Class II MO: limited Neck: short TMD: 2fb ROM: limited Teeth: intact Anesthesia Pre-op A/P Risk Assessment & Plan Assessment: asa3 Plan: mac Status Change Before Surgery: No Pre-Antibiotics Drug: Cee Blum MD Mar 20, 2018 10:55
--- NOTE | 2018-03-20 11:00 | Immediate Post-Op Evaluation ---
Immediate Post-Op Evalulation Immediate Post-Op Evalulation Procedure: colonoscopy w/bx Date of Evaluation: Mar 20, 2018 Time of Evaluation: 10:39 IV Fluids: 200ml 0.9ns Blood Products: none Estimated Blood Loss: negligible Blood Pressure Systolic: 148 Blood Pressure Diastolic: 77 Pulse Rate: 56 Respiratory Rate: 18 O2 Sat by Pulse Oximetry: 100 Temperature (Fahrenheit): 97.8 Pain Score (1-10): 0 Nausea: No Vomiting: No Complications none Patient Status: awake, reacts, patent Hydration Status: adequate Drug: Cee Blum MD Mar 20, 2018 11:00
--- NOTE | 2018-03-20 16:30 | Procedure Note ---
DATE OF PROCEDURE: 03/20/2018 SURGEON: Ignacio Olson M.D. ANESTHESIOLOGIST: Dr. Peterson. PROCEDURE: Colonoscopy with biopsy. ANESTHESIA: Per Dr. Peterson. INSTRUMENT: Olympus adult flexible colonoscope. INDICATION: Screening colonoscopy, chronic constipation. The procedure, risks, benefits, and possible consequences, including hemorrhage, aspiration, perforation and infection, and alternative treatments, were explained to the patient/legal guardian by Dr. Ignacio Olson and the patient/legal guardian understood and accepted these risks. DESCRIPTION OF PROCEDURE: After informed consent was obtained and the patient was adequately sedated, first rectal exam was performed which was positive for internal and external hemorrhoids. Then, the scope was the advanced from the rectum into the cecum documented by the appendiceal orifice, ileocecal valve, and right upper quadrant palpation. Quality of prep was very good. The patient had evidence of scattered diverticulosis actually in the right colon. There was no obvious large polyp seen. In the rectum, there was a small polyp hyperplastic-looking, which was biopsied. Retroflexion in the rectum showed evidence of small internal hemorrhoids. SUMMARY OF FINDINGS: 1. Right-sided diverticulosis. 2. One rectal polyp, removed. 3. Internal hemorrhoids. RECOMMENDATIONS: Follow up biopsy results and treat accordingly. We will recommend repeat colonoscopy in 5 years. Ignacio Olson M.D. DR: Claude JOB#: [id number] CC:
--- NOTE | 2018-03-20 19:53 | 48 Hour Post Anesthesia Eval ---
Post Anesthesia Evaluation Procedure: colonoscopy w/bx Date of Evaluation: Mar 20, 2018 Time of Evaluation: 10:41 Blood Pressure Systolic: 150 0: 83 Pulse Rate: 55 Respiratory Rate: 18 Temperature (Fahrenheit): 97.8 O2 Sat by Pulse Oximetry: 100 Airway: patent Nausea: No Vomiting: No Pain Intensity: 0 Hydration Status: adequate Cardiopulmonary Status: stable Mental Status/LOC: patient returned to baseline Post-Anesthesia Complications: none Follow-up care needed: N/A Cee Merritt MD Mar 20, 2018 19:53
--- NOTE | 2018-03-21 14:11 | Cardiology Report ---
APPROVED REPORT EKG Measurement Heart [id number] IN [id number] [id number] Sinus bradycardia Otherwise normal ECG
== END 2018-03-20 12:30 | disposition home or self-care (01) ==
LOC: GAS 08:09
DX: Z12.11 Encounter for screening for malignant neoplasm of colon (principal); K59.09 Other constipation; K57.90 Diverticulosis of intestine, part unspecified, without perforation or abscess without bleeding; K62.1 Rectal polyp; K64.8 Other hemorrhoids; K21.9 Gastro-esophageal reflux disease without esophagitis; R00.1 Bradycardia, unspecified; I10 Essential (primary) hypertension; Z91.048 Other nonmedicinal substance allergy status; Z91.041 Radiographic dye allergy status
CPT/HCPCS: 45380; 93005; J0461; J2704; 94003; 94150

== ENCOUNTER 2018-04-05 09:15 | Emergency (ER) | payer MEDICARE, OTHER ==
[~2018-04-05] VITALS: Ht 165.1 cm; Wt 95.7 kg
[~2018-04-05 09:15] MED LIST changes: -Atropine Inj 1mg/10ml Syr IV PRN; -DiphenhydrAMINE 50mg/ml Inj IVP PRN; -Midazolam 2mg/2ml Inj IVP PRN; -fentaNYL 100 mcg/2 mL IV PRN
[2018-04-05 09:38] VITALS: BP 132/68
[2018-04-05] MEDS ORDERED: DiphenhydrAMINE 50mg/ml Inj IVP ONE (09:45)
[2018-04-05 10:18] LABS: BASOPHILS % (AUTO) 1.8 % (0.0-2.0); EOSINOPHILS % (AUTO) 0.1 % (0.0-3.0); HEMATOCRIT 45.9 % (37.0-47.0); HEMOGLOBIN 14.7 G/DL (12.0-16.0); LYMPHOCYTES % (AUTO) 24.4 % (20.0-45.0); MEAN CORPUSCULAR VOLUME 86 FL (80-99); MONOCYTES % (AUTO) 5.5 % (1.0-10.0); NEUTROPHILS % (AUTO) 68.3 % (45.0-75.0); PLATELET COUNT 286 K/UL (150-450); RED BLOOD COUNT 5.37 M/UL (4.20-5.40); RED CELL DISTRIBUTION WIDTH 11.5 % (11.6-14.8); WHITE BLOOD COUNT 10.3 K/UL (4.8-10.8)
[2018-04-05 10:27] LABS: ANION GAP 12 mmol/L (5-15); BLOOD UREA NITROGEN 27 mg/dL (7-18); CALCIUM 9.7 MG/DL (8.5-10.1); CARBON DIOXIDE 23 MMOL/L (21-32); CHLORIDE 99 MMOL/L (98-107); CREATININE 1.3 MG/DL (0.55-1.30); POTASSIUM 4.7 MMOL/L (3.5-5.1); SODIUM 134 MMOL/L (136-145)
--- NOTE | 2018-04-05 10:32 | Diagnostic Imaging Report ---
Indication: Dyspnea Comparison: 02/26/2018 A single view chest radiograph was obtained. Findings: No definite infiltrate or pulmonary vascular congestion identified. The heart is enlarged. The aorta is mildly enlarged consistent with atherosclerotic vascular disease. The bones are osteopenic. Impression: No acute disease
[2018-04-05 10:39] LABS: ALANINE AMINOTRANSFERASE 18 U/L (12-78); ALBUMIN 3.5 G/DL (3.4-5.0); ALBUMIN/GLOBULIN RATIO 0.8 (1.0-2.7); ALKALINE PHOSPHATASE 97 U/L (46-116); ASPARTATE AMINO TRANSFERASE 14 U/L (15-37); BILIRUBIN,TOTAL 0.3 MG/DL (0.2-1.0); CREATINE KINASE 41 U/L (26-308)
[2018-04-05 11:51] LABS: APPEARANCE,URINE CLEAR; BILIRUBIN, URINE NEGATIVE (NEGATIVE); COLOR,URINE PALE YELLOW; GLUCOSE, URINE (UA) NEGATIVE (NEGATIVE); KETONES,URINE NEGATIVE (NEGATIVE); LEUKOCYTE ESTERASE ,URINE 3+ (NEGATIVE); NITRITE,URINE NEGATIVE (NEGATIVE); PH,URINE 5 (4.5-8.0); PROTEIN,URINE NEGATIVE (NEGATIVE); UROBILINOGEN,URINE NORMAL MG/DL (0.0-1.0)
[2018-04-05 12:34] VITALS: BP 131/78
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
[2018-04-05] MEDS ORDERED: cefTRIAXone 1 GM in NS 55 ML IVPB ONE (13:45)
[2018-04-05] MEDS ORDERED: NITROFURANTOIN100 M2 ORAL (14:11)
[2018-04-05] MEDS ORDERED: BENADRYL25 MG ORAL (14:11)
[2018-04-05 14:21] VITALS: BP 131/78
--- NOTE | 2018-04-07 13:18 | Cardiology Report ---
APPROVED REPORT EKG Measurement Heart [id number] ID [id number] Sinus rhythm with premature ventricular complexes or fusion complexes Otherwise normal ECG
== END 2018-04-05 14:23 | disposition home or self-care (01) ==
LOC: EMR 10:08
DX: L50.9 Urticaria, unspecified (principal); N39.0 Urinary tract infection, site not specified; F41.9 Anxiety disorder, unspecified; I10 Essential (primary) hypertension; J45.909 Unspecified asthma, uncomplicated
CPT/HCPCS: 36415; 71045; 80053; 80307; 81003; 82550; 83880; 84484; 85025; 85610; 85730; 87086; 93005; 96360; 96374; 99284; J0696; J1200

== ENCOUNTER 2018-04-25 09:13 | Outpatient (CLI) | payer MEDICARE, OTHER ==
[~2018-04-25 09:13] MED LIST changes: +BENADRYL25 MG ORAL; +NITROFURANTOIN100 M2 ORAL
--- NOTE | 2018-04-25 09:37 | GI Progress Note ---
Assessment/Plan Problems: (1) UTI (urinary tract infection) ICD Codes: N39.0 - Urinary tract infection, site not specified SNOMED: 61839660 (2) Anxiety ICD Codes: F41.9 - Anxiety disorder, unspecified SNOMED: 96386353 (3) Hives ICD Codes: L50.9 - Urticaria, unspecified SNOMED: 812097078 (4) GERD (gastroesophageal reflux disease) ICD Codes: K21.9 - GERD (gastroesophageal reflux disease) SNOMED: 672951953 (5) Gastritis ICD Codes: K29.70 - Gastritis, unspecified, without bleeding SNOMED: 8954653 (6) Constipation ICD Codes: K59.00 - Constipation SNOMED: 78792375 Status: stable Status Narrative Seen with Dr. Olson. Assessment/Plan SUMMARY OF FINDINGS reviewed with patient: 1. Right-sided diverticulosis. 2. One rectal polyp, removed. 3. Internal hemorrhoids. RECOMMENDATIONS: Follow up biopsy results and treat accordingly. >> negative for H. Pylori Trial Trulance RTC x 1 month We will recommend repeat colonoscopy in 5 years. The patient was seen and examined at bedside and all new and available data was reviewed in the patients chart. I agree with the above findings, impression and plan. (Patient seen earlier today. Signature stamp does not reflect patient encounter time.). - Ignacio Olson MD Subjective Subjective lower pelvic abdominal pain, taking abx for UTI Objective T 98.0 BP 126/73 58 HR 97 RA General Appearance: WD/WN, no apparent distress, alert, overweight Cardiovascular: normal rate Respiratory/Chest: normal breath sounds, no respiratory distress Abdominal Exam: normal bowel sounds, non tender, soft Extremities: normal range of motion, non-tender Camila Lanza DRUG SAFETY PHYSICIAN Apr 25, 2018 09:37
[2018-04-25 10:19] VITALS: BP 126/73
== END 2018-04-25 09:45 | disposition home or self-care (01) ==
LOC: PAN 09:13
DX: N39.0 Urinary tract infection, site not specified (principal); F41.9 Anxiety disorder, unspecified; L50.9 Urticaria, unspecified; K21.9 Gastro-esophageal reflux disease without esophagitis; K29.70 Gastritis, unspecified, without bleeding; K59.00 Constipation, unspecified; K64.8 Other hemorrhoids; K62.1 Rectal polyp; K57.90 Diverticulosis of intestine, part unspecified, without perforation or abscess without bleeding
CPT/HCPCS: 99212

== ENCOUNTER 2018-08-17 10:52 | Emergency (ER) | payer MEDICARE, OTHER ==
[~2018-08-17] VITALS: Ht 165.1 cm; Wt 90.7 kg
[2018-08-17 11:38] VITALS: BP 121/66
[2018-08-17 11:49] LABS: BASOPHILS % (AUTO) 1.7 % (0.0-2.0); EOSINOPHILS % (AUTO) 2.3 % (0.0-3.0); HEMATOCRIT 41.3 % (37.0-47.0); HEMOGLOBIN 12.9 G/DL (12.0-16.0); LYMPHOCYTES % (AUTO) 38.1 % (20.0-45.0); MEAN CORPUSCULAR VOLUME 85 FL (80-99); MONOCYTES % (AUTO) 8.2 % (1.0-10.0); NEUTROPHILS % (AUTO) 49.7 % (45.0-75.0); PLATELET COUNT 224 K/UL (150-450); RED BLOOD COUNT 4.88 M/UL (4.20-5.40); RED CELL DISTRIBUTION WIDTH 10.8 % (11.6-14.8); WHITE BLOOD COUNT 6.9 K/UL (4.8-10.8)
[2018-08-17 12:02] LABS: ANION GAP 8 mmol/L (5-15); BLOOD UREA NITROGEN 28 mg/dL (7-18); CALCIUM 10.2 MG/DL (8.5-10.1); CARBON DIOXIDE 31 MMOL/L (21-32); CHLORIDE 98 MMOL/L (98-107); CREATININE 1.3 MG/DL (0.55-1.30); POTASSIUM 3.3 MMOL/L (3.5-5.1); SODIUM 137 MMOL/L (136-145)
[2018-08-17 12:04] LABS: ALANINE AMINOTRANSFERASE 17 U/L (12-78); ALBUMIN 3.9 G/DL (3.4-5.0); ALBUMIN/GLOBULIN RATIO 0.8 (1.0-2.7); ALKALINE PHOSPHATASE 93 U/L (46-116); ASPARTATE AMINO TRANSFERASE 14 U/L (15-37); BILIRUBIN,TOTAL 0.4 MG/DL (0.2-1.0)
--- NOTE | 2018-08-17 12:29 | Diagnostic Imaging Report ---
Indication: Chest pain Comparison: 04/05/2018 A single view chest radiograph was obtained. Findings: No definite infiltrate or pulmonary vascular congestion identified. The heart is enlarged. The aorta is mildly enlarged consistent with atherosclerotic vascular disease. The bones are osteopenic. Impression: No acute disease
[2018-08-17 12:56] LABS: APPEARANCE,URINE CLEAR; BILIRUBIN, URINE NEGATIVE (NEGATIVE); COLOR,URINE PALE YELLOW; GLUCOSE, URINE (UA) NEGATIVE (NEGATIVE); KETONES,URINE NEGATIVE (NEGATIVE); LEUKOCYTE ESTERASE ,URINE 1+ (NEGATIVE); NITRITE,URINE NEGATIVE (NEGATIVE); PH,URINE 5 (4.5-8.0); PROTEIN,URINE NEGATIVE (NEGATIVE); UROBILINOGEN,URINE NORMAL MG/DL (0.0-1.0)
--- NOTE | 2018-08-17 13:21 | Emergency Room Report ---
History of Present Illness General Chief Complaint: Chest Pain Source: Patient Present Illness HPI This patient is here for generalized, mild weakness, about two weeks. She is not here for cp. No trauma, no fever, no shortness of breath, no travel history, no leg swelling , no chest pain, no diaphoresis, no exertional complaints, no nausea, no vomiting, no diarrhea, no abdominal pain. Tolerating po fine, normal urinary output, normal bm. No syncope, LOC, dizziness, lightheadedness, headache. Allergies: Coded Allergies: Cat Dander (Verified Allergy, Severe, 03/20/18) SHORTNESS OF BREATH, THROAT CLOSING, LIPS SWELLING IODINE (Verified Allergy, Intermediate, 03/20/18) NECK SWELLING Nursing Documentation-[facility] Past Medical History: No Stated History Hx Cardiac Problems: Yes Hx Hypertension: Yes Hx Pacemaker: No Hx Asthma: Yes Hx COPD: No Hx Diabetes: No Hx Cancer: No Hx Gastrointestinal Problems: Yes - Colon surgery 1998 Hx Dialysis: No Hx Neurological Problems: Yes Hx Cerebrovascular Accident: No Hx Seizures: No Hx Headaches: Yes - MIGRAINE Review of Systems Constitutional: Reports: no symptoms Eye: Reports: no symptoms ENT: Reports: no symptoms Respiratory: Reports: no symptoms Cardiovascular: Reports: no symptoms Gastrointestinal: Reports: no symptoms Genitourinary: Reports: no symptoms Musculoskeletal: Reports: no symptoms Skin: Reports: no symptoms Psychiatric: Reports: no symptoms Neurological: Reports: no symptoms Endocrine: Reports: no symptoms Hematologic/Lymphatic: Reports: no symptoms Allergic: Reports: no symptoms All Other Systems: negative except mentioned in HPI Physical Exam Vital Signs Date Time Temp Pulse Resp B/P (MAP) Pulse Ox O2 Delivery O2 Flow Rate FiO2 08/17/18 11:06 98.1 62 17 139/55 100 Room Air Sp02 EP Interpretation: reviewed, normal General Appearance: normal inspection, well appearing, no apparent distress, alert, GCS 15, non-toxic Head: normocephalic, atraumatic Eyes: bilateral eye normal inspection, bilateral eye PERRL, bilateral eye EOMI ENT: normal ENT inspection, hearing grossly normal, normal pharynx, no angioedema, normal voice, moist mucus membranes Neck: normal inspection, full range of motion, supple, no meningismus, no bony tend Respiratory: normal inspection, lungs clear, normal breath sounds, no rhonchi, no respiratory distress, no retraction, no accessory muscle use, no wheezing Cardiovascular #1: normal inspection, regular rate, rhythm, no edema Gastrointestinal: normal inspection, normal bowel sounds, non tender, soft, no mass, non-distended Musculoskeletal: gait/station normal, normal range of motion Neurologic: normal inspection, alert, oriented x3, responsive, motor strength/ tone normal Psychiatric: normal inspection, judgement/insight normal, memory normal Suicide Risk Assessment: Suicidal Ideation: No Had intent to initiate attempt: No Pt's plan for suicide attempt: No Has means to complete attempt: No Skin: normal inspection, normal color, no rash, warm/dry Medical Decision Making Diagnostic Impression: Primary Impression: Weakness EKG Diagnostic Results EKG Time: 13:21 Rate: normal Rhythm: NSR ST Segments: no acute changes ASA given to the pt in ED: No Rhythm Strip Diag. Results Rhythm Strip Time: 13:21 EP Interpretation: yes Rate: sinus vincent Rhythm: NSR Chest X-Ray Diagnostic Results Chest X-Ray Diagnostic Results : Chest X-Ray Ordered: Yes # of Views/Limited/Complete: 1 View Indication: Chest Pain EP Interpretation: Yes Interpretation: no consolidation, no effusion, no pneumothorax, no acute cardiopulmonary disease Last Vital Signs Date Time Temp Pulse Resp B/P (MAP) Pulse Ox O2 Delivery O2 Flow Rate FiO2 08/17/18 11:38 98.1 52 11 121/66 97 Room Air Status: improved Disposition: HOME, SELF-CARE Condition: Stable Referrals: NOT CHOSEN IPA/MD,REFERRING (PCP) Patient Instructions: Danielito [id number] Pedro Pablo Luna M.D. Aug 17, 2018 13:21
[2018-08-17 14:35] VITALS: BP 109/54
[2018-08-17 14:40] VITALS: BP 109/54
[2018-08-18] MEDS ORDERED: EAR WAX DROPS15 M1 OT (15:51)
[2018-08-18] MEDS ORDERED: LORATADINE10 M2 PO (15:51)
--- NOTE | 2018-08-19 15:21 | Cardiology Report ---
APPROVED REPORT EKG Measurement Heart [id number] CT [id number] Sinus bradycardia Otherwise normal ECG
== END 2018-08-17 14:52 | disposition home or self-care (01) ==
LOC: EMR 11:09
DX: R53.1 Weakness (principal); I10 Essential (primary) hypertension; J45.909 Unspecified asthma, uncomplicated; Z86.69 Personal history of other diseases of the nervous system and sense organs
CPT/HCPCS: 36415; 71045; 80053; 81001; 83690; 84484; 85025; 93005; 99284

== ENCOUNTER → 2018-08-18 | Emergency (ER) | payer MEDICARE, OTHER ==
[~2018-08-18] VITALS: Ht 166.4 cm; Wt 92.5 kg
[~2018-08-18] MED LIST changes: +EAR WAX DROPS15 M1 OT; +LORATADINE10 M2 PO
[2018-08-18 15:16] VITALS: BP 114/61
--- NOTE | 2018-08-18 15:49 | Emergency Room Report ---
History of Present Illness General Chief Complaint: Dizziness Source: Patient, Medical Record Present Illness HPI Mrs. Almonte is a very pleasant 78-year-old female with presents with ear pressure. She has a history of hypertension. She feels as if sounds are louder than normal. She denies any pain. She denies paralysis. She l denies difficulty with ambulation. She was seen last night for chest pain. Allergies: Coded Allergies: Cat Dander (Verified Allergy, Severe, 03/20/18) SHORTNESS OF BREATH, THROAT CLOSING, LIPS SWELLING IODINE (Verified Allergy, Intermediate, 03/20/18) NECK SWELLING Patient History Past Medical History: see triage record, old chart reviewed Past Surgical History: other - old records reviewed Social History: Denies: drug use Last Menstrual Period: menopause Reviewed Nursing Documentation: PMH: Agreed; PSxH: Agreed Nursing Documentation-PMH Past Medical History: No History, Except For Hx Cardiac Problems: Yes Hx Hypertension: Yes Hx Pacemaker: No Hx Asthma: Yes Hx COPD: No Hx Diabetes: No Hx Cancer: No Hx Gastrointestinal Problems: Yes - Colon surgery 1998 (due to diverticulitis) Hx Dialysis: No Hx Neurological Problems: Yes Hx Cerebrovascular Accident: No Hx Seizures: No Hx Headaches: Yes - MIGRAINE Review of Systems Constitutional: Denies: fever, malaise Respiratory: Denies: cough Cardiovascular: Denies: chest pain Gastrointestinal: Denies: abdominal pain Neurological: Denies: headache, numbness, paresthesia, seizure, tingling All Other Systems: negative except mentioned in HPI Physical Exam Vital Signs Date Time Temp Pulse Resp B/P (MAP) Pulse Ox O2 Delivery O2 Flow Rate FiO2 08/18/18 14:52 97.9 61 18 107/64 99 Room Air Sp02 EP Interpretation: reviewed, normal General Appearance: no apparent distress, alert, GCS 15, non-toxic Head: normocephalic, atraumatic Eyes: bilateral eye normal inspection, bilateral eye PERRL ENT: hearing grossly normal, normal pharynx, no angioedema, normal voice, other - copious amount of wax with serous effusion behind both tympanic membranes Neck: full range of motion, supple/symm/no masses Respiratory: chest non-tender, lungs clear, normal breath sounds, speaking full sentences Cardiovascular #1: regular rate, rhythm, no edema Cardiovascular #2: 2+ carotid (R), 2+ carotid (L), 2+ radial (R), 2+ radial (L) , 2+ dorsalis pedis (R), 2+ dorsalis pedis (L) Gastrointestinal: normal bowel sounds, non tender, soft, non-distended, no guarding, no rebound Rectal: deferred Genitourinary: normal inspection, no CVA tenderness Musculoskeletal: back normal, gait/station normal, normal range of motion, non- tender, calf tenderness Neurologic: alert, oriented x3, responsive, motor strength/tone normal, sensory intact, speech normal Psychiatric: judgement/insight normal, memory normal, mood/affect normal, no suicidal/homicidal ideation Skin: normal color, no rash, warm/dry, well hydrated Lymphatic: no adenopathy Medical Decision Making Diagnostic Impression: Primary Impression: Acute middle ear effusion Additional Impression: Excessive cerumen in both ear canals ER Course prescribed loratadine and ear flushes Last Vital Signs Date Time Temp Pulse Resp B/P (MAP) Pulse Ox O2 Delivery O2 Flow Rate FiO2 08/18/18 15:17 60 15 08/18/18 15:16 97.8 114/61 100 Room Air Suzanne Doyle MD Aug 18, 2018 15:49
[2018-08-18 16:36] VITALS: BP 120/64
[2018-08-18 16:38] VITALS: BP 120/64
== END | disposition home or self-care (01) ==
LOC: EMR 15:02
DX: H74.8X3 Other specified disorders of middle ear and mastoid, bilateral (principal); H61.23 Impacted cerumen, bilateral; I10 Essential (primary) hypertension; J45.909 Unspecified asthma, uncomplicated
CPT/HCPCS: 99283

== ENCOUNTER 2019-02-19 16:27 | Emergency (ER) | payer MEDICARE, OTHER ==
[~2019-02-19] VITALS: Ht 165.1 cm; Wt 88.5 kg
--- NOTE | 2019-02-19 16:40 | NUR ---
ED Nurse Note: Patient walked into ED c/o lower abdominal pain, 07/19 since 02/07/19. patient denies nausea, vomiting, or diarrhea. patient is alert awake x4 ambulatory breathing unlabored and even.
--- NOTE | 2019-02-19 17:30 | NUR ---
ED Nurse Note: CT contrast started
[2019-02-19 17:38] LABS: APPEARANCE,URINE SLIGHTLY CLOUDY; BILIRUBIN, URINE NEGATIVE (NEGATIVE); GLUCOSE, URINE (UA) NEGATIVE (NEGATIVE); KETONES,URINE 1+ (NEGATIVE); LEUKOCYTE ESTERASE ,URINE 3+ (NEGATIVE); NITRITE,URINE NEGATIVE (NEGATIVE); PH,URINE 5 (4.5-8.0); PROTEIN,URINE 1+ (NEGATIVE); UROBILINOGEN,URINE 1 MG/DL (0.0-1.0)
[2019-02-19 17:40] LABS: BASOPHILS % (AUTO) 1.8 % (0.0-2.0); HEMATOCRIT 40.2 % (37.0-47.0); HEMOGLOBIN 12.8 G/DL (12.0-16.0); LYMPHOCYTES % (AUTO) 46.8 % (20.0-45.0); MEAN CORPUSCULAR VOLUME 86 FL (80-99); MONOCYTES % (AUTO) 6.3 % (1.0-10.0); NEUTROPHILS % (AUTO) 43.1 % (45.0-75.0); PLATELET COUNT 251 K/UL (150-450); RED BLOOD COUNT 4.66 M/UL (4.20-5.40); RED CELL DISTRIBUTION WIDTH 11.7 % (11.6-14.8); WHITE BLOOD COUNT 7.8 K/UL (4.8-10.8)
[2019-02-19 17:41] LABS: COLOR,URINE YELLOW
[2019-02-19 17:54] LABS: ANION GAP 9 mmol/L (5-15); BLOOD UREA NITROGEN 16 mg/dL (7-18); CARBON DIOXIDE 31 MMOL/L (21-32); CHLORIDE 103 MMOL/L (98-107); POTASSIUM 3.8 MMOL/L (3.5-5.1); SODIUM 143 MMOL/L (136-145)
[2019-02-19 17:58] LABS: ALANINE AMINOTRANSFERASE 17 U/L (12-78); ALBUMIN/GLOBULIN RATIO 0.9 (1.0-2.7); ALKALINE PHOSPHATASE 110 U/L (46-116); ASPARTATE AMINO TRANSFERASE 15 U/L (15-37); BILIRUBIN,TOTAL 0.6 MG/DL (0.2-1.0)
[2019-02-19 18:11] VITALS: BP 141/71
[2019-02-19] MEDS ORDERED: cefTRIAXone 1 GM in NS 55 ML IVPB ONE (19:00)
--- NOTE | 2019-02-19 19:08 | NUR ---
HAND-OFF: Report given to Katelin STEVENS. patient is stable in bed
--- NOTE | 2019-02-19 19:09 | NUR ---
ED Nurse Note: received report from RN Eva and assumed care, pt vss, resp even and unlabored on RA, will cont monitor, pt drank oral contrast, called CT.
[2019-02-19] MEDS ORDERED: CEPHALEXIN500 MG ORAL (20:31)
[2019-02-19] MEDS ORDERED: TYLENOL EXTRA500 MG ORAL (20:32)
[2019-02-19] MEDS ORDERED: PHENAZOPYRIDIN100 MG ORAL (20:32)
--- NOTE | 2019-02-19 20:43 | NUR ---
ED Nurse Note: PT CLEARED TO BE D/C PER ERMD, PT DISCHARGE AND AFTERCARE INSTRUCTION PROVIDED W/ PRESCRIPTION, PT EDUCATION DONE VIA DISCUSSION AND HANDOUT, PT ADVISED TO FOLLOW UP WITH PCP OR RETURN TO ED IF SX WORSEN OR NEW SX DEVELOP, PT VERBALIZED UNDERSTANDING AND AGREES WITH PLAN, VSS, AMBULATORY W/ STEADY GAIT, IV D/C AND ID BAND REMOVED, PT LEFT W/ ALL BELONGINGS.
[2019-02-19 20:44] VITALS: BP 128/67
--- NOTE | 2019-02-19 22:12 | Emergency Room Report ---
History of Present Illness General Chief Complaint: Abdominal Pain Source: Patient Present Illness HPI 79-year-old female presents ED for evaluation. Complaining of abdominal pain for the last 3 days. Pain is lower, sharp, 8 out of 10, nonradiating. Denies fevers or chills. Denies flank pain. Denies nausea or vomiting. Denies diarrhea. States she's had prior surgical history on the abdomen from a "ruptured polyp". No other aggravating relieving factors. Denies any other associated symptoms Allergies: Coded Allergies: Cat Dander (Verified Allergy, Severe, 02/19/19) SHORTNESS OF BREATH, THROAT CLOSING, LIPS SWELLING IODINE (Verified Allergy, Intermediate, 02/19/19) NECK SWELLING Patient History Past Medical History: HTN, asthma Past Surgical History: none Pertinent Family History: none Social History: Denies: smoking, alcohol use, drug use Last Menstrual Period: 44 YEARS AGO Now: No Immunizations: UTD Reviewed Nursing Documentation: PMH: Agreed; PSxH: Agreed Nursing Documentation-PMH Past Medical History: No History, Except For Hx Cardiac Problems: Yes Hx Hypertension: Yes Hx Pacemaker: No Hx Asthma: Yes Hx COPD: No Hx Diabetes: No Hx Cancer: No Hx Gastrointestinal Problems: Yes - Colon surgery 1998 (due to diverticulitis) Hx Dialysis: No Hx Neurological Problems: Yes Hx Cerebrovascular Accident: No Hx Seizures: No Hx Headaches: Yes - MIGRAINE Review of Systems All Other Systems: negative except mentioned in HPI Physical Exam Vital Signs Date Time Temp Pulse Resp B/P (MAP) Pulse Ox O2 Delivery O2 Flow Rate FiO2 02/19/19 16:33 98.2 70 16 95 Room Air 02/19/19 18:11 141/71 Sp02 EP Interpretation: reviewed, normal General Appearance: no apparent distress, alert, GCS 15, non-toxic Head: normocephalic, atraumatic Eyes: bilateral eye normal inspection, bilateral eye PERRL ENT: hearing grossly normal, normal pharynx, no angioedema, normal voice Neck: full range of motion, supple/symm/no masses Respiratory: chest non-tender, lungs clear, normal breath sounds, speaking full sentences Cardiovascular #1: regular rate, rhythm, no edema Cardiovascular #2: 2+ carotid (R), 2+ carotid (L), 2+ radial (R), 2+ radial (L) , 2+ dorsalis pedis (R), 2+ dorsalis pedis (L) Gastrointestinal: normal bowel sounds, soft, non-distended, no guarding, no rebound, tenderness - suprapubic Rectal: deferred Genitourinary: normal inspection, no CVA tenderness Musculoskeletal: back normal, gait/station normal, normal range of motion, non- tender Neurologic: alert, oriented x3, responsive, motor strength/tone normal, sensory intact, speech normal Psychiatric: judgement/insight normal, memory normal, mood/affect normal, no suicidal/homicidal ideation Reflexes: 3+ bicep (R), 3+ bicep (L), 3+ tricep (R), 3+ tricep (L), 3+ knee (R) , 3+ knee (L) Skin: normal color, no rash, warm/dry, well hydrated Lymphatic: no adenopathy Medical Decision Making Diagnostic Impression: Primary Impression: UTI (urinary tract infection) Qualified Codes: N39.0 - Urinary tract infection, site not specified ER Course Hospital Course 79-year-old F presents to ED with abdominal pain Differential diagnosis includes-appendicitis, cholecystitis, small bowel obstruction, gastritis, Clinical course Patient placed on stretcher. After initial history and physical I ordered labs , IV fluids, pain medications and CT scan Labs - no leukocytosis, electrolytes ok, LFTs normal, UA + bacteria CT scan shows no acute pathology Discussed findings with patient. Reassurance given. Given antibiotics here. We'll discharged to home. Safe for discharge with close outpatient follow-up. PMD Dr. Verdugo aware I feel this is a highly complex case requiring extensive working including EKG/ Rhythm strip, Xray/CT/US, Blood/urine lab work, repeat exams while in ED, and administration of strong opiates/narcotics for pain control, admission to hospital or close patient follow up. Diagnosis - UTI Stable and discharged to home [facility] Rx Keflex, pyridium, tylenol. Followup with PMD. Return to ED if symptoms recur or worsen Labs Test 02/19/19 16:44 White Blood Count 7.8 K/UL (4.8-10.8) Red Blood Count 4.66 M/UL (4.20-5.40) Hemoglobin 12.8 G/DL (12.0-16.0) Hematocrit 40.2 % (37.0-47.0) Mean Corpuscular Volume 86 FL (80-99) Mean Corpuscular Hemoglobin 27.5 PG (27.0-31.0) Mean Corpuscular Hemoglobin Concent 31.9 G/DL (32.0-36.0) Red Cell Distribution Width 11.7 % (11.6-14.8) Platelet Count 251 K/UL (150-450) Mean Platelet Volume 5.9 FL (6.5-10.1) Neutrophils (%) (Auto) 43.1 % (45.0-75.0) Lymphocytes (%) (Auto) 46.8 % (20.0-45.0) Monocytes (%) (Auto) 6.3 % (1.0-10.0) Eosinophils (%) (Auto) 2.0 % (0.0-3.0) Basophils (%) (Auto) 1.8 % (0.0-2.0) Urine Color Yellow Urine Appearance Slightly cloudy Urine pH 5 (4.5-8.0) Urine Specific [place] 1.025 (1.005-1.035) Urine Protein 1+ (NEGATIVE) Urine Glucose (UA) Negative (NEGATIVE) Urine Ketones 1+ (NEGATIVE) Urine Blood 1+ (NEGATIVE) Urine Nitrite Negative (NEGATIVE) Urine Bilirubin Negative (NEGATIVE) Urine Urobilinogen 1 MG/DL (0.0-1.0) Urine Leukocyte Esterase 3+ (NEGATIVE) Urine RBC 2-4 /HPF (0 - 2) Urine WBC 5-10 /HPF (0 - 2) Urine Squamous Epithelial Cells Few /LPF (NONE/OCC) Urine Bacteria Moderate /HPF (NONE) Sodium Level 143 MMOL/L (136-145) Potassium Level 3.8 MMOL/L (3.5-5.1) Chloride Level 103 MMOL/L (98-107) Carbon Dioxide Level 31 MMOL/L (21-32) Anion Gap 9 mmol/L (5-15) Blood Urea Nitrogen 16 mg/dL (7-18) Creatinine 1.0 MG/DL (0.55-1.30) Estimat Glomerular Filtration Rate mL/min (>60) Glucose Level 107 MG/DL (74-106) Calcium Level 10.0 MG/DL (8.5-10.1) Total Bilirubin 0.6 MG/DL (0.2-1.0) Aspartate Amino Transf (AST/SGOT) 15 U/L (15-37) Alanine Aminotransferase (ALT/SGPT) 17 U/L (12-78) Alkaline Phosphatase 110 U/L (46-116) Total Protein 8.5 G/DL (6.4-8.2) Albumin 4.0 G/DL (3.4-5.0) Globulin 4.5 g/dL Albumin/Globulin Ratio 0.9 (1.0-2.7) Lipase 99 U/L (73-393) CT/MRI/US Diagnostic Results CT/MRI/US Diagnostic Results : Imaging Test Ordered: CT A/P Impression no acute process Last Vital Signs Date Time Temp Pulse Resp B/P (MAP) Pulse Ox O2 Delivery O2 Flow Rate FiO2 02/19/19 20:44 98.5 74 18 128/67 98 Room Air Status: improved Disposition: HOME, SELF-CARE Condition: Stable Scripts Phenazopyridine Hcl* (PYRIDIUM*) 100 Mg Tablet 100 MG ORAL THREE TIMES A DAY, #3 TAB Prov: Kevin Cramer MD 02/19/19 Acetaminophen* (TYLENOL EXTRA STRENGTH*) 500 Mg Tablet 500 MG ORAL Q8H PRN for Prn Headache/Temp > 101, #30 TAB 0 Refills Prov: Kevin Cramer MD 02/19/19 Cephalexin* (KEFLEX*) 500 Mg Capsule 500 MG ORAL EVERY 6 HOURS for 7 Days, CAP Prov: Kevin Cramer MD 02/19/19 Referrals: Marty Verdugo MD Patient Instructions: Dysuria Kevin Cramer MD February 19, 2019 22:12
--- NOTE | 2019-02-20 09:17 | Diagnostic Imaging Report ---
Indication: Abdominal pain Technique: Continuous helical transaxial imaging of the abdomen and pelvis was obtained from the lung bases to the pubic symphysis. No intravenous contrast was administered. Coronal 2-D reformats were also obtained. Automatic Exposure Control was utilized. Total Dose length Product (DLP): 977.[address] Dose Index Volume (CTDIvol): 18.4 mGy Comparison: 03/09/2018 Findings: The lung bases are clear. Aorta is moderately calcified. There is a 1.4 x 0.9 cm nonobstructive stone in the lower pole calyx of the left kidney. This is seen on the prior occasion as well. There is no hydronephrosis. There is a small hypodensity in the left kidney again noted the nonspecific on this examination. The appendix is not seen. There are no secondary signs of acute appendicitis. The uterus is absent. Gallbladder is unremarkable. There is no free fluid or free air. Bowel gas pattern is nonobstructive. The bladder is nondistended. There is narrowing of intervertebral discs and accompanying endplate osteophyte formation. Hypertrophied facet joints also demonstrated.. IMPRESSION: 1.4 cm nonobstructive stone in the lower pole left kidney. No change. Status post hysterectomy. Nonspecific hypodensity in the left kidney grossly unchanged from the previous noncontrast CT 03/09/2018. Incomplete evaluation without IV contrast. The CT scanner at [facility] is accredited by the [employer] and the scans are performed using dose optimization techniques as appropriate to a performed exam including Automatic Exposure control.
== END 2019-02-19 20:45 | disposition home or self-care (01) ==
LOC: EMR 17:13
DX: N39.0 Urinary tract infection, site not specified (principal); Z91.041 Radiographic dye allergy status; Z91.048 Other nonmedicinal substance allergy status; I10 Essential (primary) hypertension
CPT/HCPCS: 36415; 74176; 80053; 81003; 83690; 85025; 87086; 96365; 99284; J0696; J7040

== ENCOUNTER 2019-04-21 12:11 | Emergency (ER) | payer MEDICARE, OTHER ==
[~2019-04-21] VITALS: Ht 165.1 cm; Wt 88.5 kg
[~2019-04-21 12:11] MED LIST changes: +PHENAZOPYRIDIN100 MG ORAL; +TYLENOL EXTRA500 MG ORAL
[2019-04-21 12:15] VITALS: BP 112/75
--- NOTE | 2019-04-21 12:15 | NUR ---
ED Nurse Note: pt walked in to ER c/o anal discomfort. pt aao x4 and ambulatory. skin clean and intact. calm and cooperative.
--- NOTE | 2019-04-21 12:36 | Emergency Room Report ---
History of Present Illness General Chief Complaint: Pain Source: Medical Record Present Illness HPI 79-year-old female with history of hypertension currently controlled with medication here complaining of pain and irritation around the anal area. Patient reports that she has history of constipation and has had hemorrhoids in the past however dysuria the first time that it is external and hurting. Patient had a colonoscopy done a year ago and was diagnosed with both internal and external hemorrhoids otherwise colonoscopy was within normal limits. Patient has a rail splitter that follows up with. Patient denies any bleeding from the rectum, rating the pain 7 out of 10 upon palpation and pressure. Denies pain radiation, denies saddle paresthesia and tingling and numbness. Patient reports that he does not have a good diet containing lots of fiber and usually eats fast food as she lives in her car and does not have options. Denies fever and chills, abdominal pain, nausea vomiting, chest pain, shortness of breath, palpitation and all other associated symptoms. Allergies: Coded Allergies: Cat Dander (Verified Allergy, Severe, 02/19/19) SHORTNESS OF BREATH, THROAT CLOSING, LIPS SWELLING IODINE (Verified Allergy, Intermediate, 02/19/19) NECK SWELLING Patient History Past Medical History: see triage record Past Surgical History: unable to obtain Pertinent Family History: none Now: No Immunizations: UTD Reviewed Nursing Documentation: PMH: Agreed; PSxH: Agreed Nursing Documentation-PMH Past Medical History: No History, Except For Hx Cardiac Problems: Yes - Left shoulder surgery Hx Hypertension: Yes Hx Pacemaker: No Hx Asthma: Yes Hx COPD: No Hx Diabetes: No Hx Cancer: No Hx Gastrointestinal Problems: Yes - Colon surgery 1998 (due to diverticulitis) , hemorrhoid Hx Dialysis: No Hx Neurological Problems: Yes Hx Cerebrovascular Accident: No Hx Seizures: No Hx Headaches: Yes - MIGRAINE Review of Systems All Other Systems: negative except mentioned in HPI Physical Exam Vital Signs Date Time Temp Pulse Resp B/P (MAP) Pulse Ox O2 Delivery O2 Flow Rate FiO2 04/21/19 12:19 98.2 74 16 148/84 (105) 99 Room Air Sp02 EP Interpretation: reviewed, normal General Appearance: normal inspection, well appearing, no apparent distress, alert Head: normocephalic, atraumatic Eyes: bilateral eye normal inspection, bilateral eye PERRL ENT: normal ENT inspection, hearing grossly normal, normal pharynx Neck: normal inspection, full range of motion, supple Respiratory: normal inspection, lungs clear, no rhonchi, no wheezing Cardiovascular #1: normal inspection, normal peripheral pulses, no murmur, normal capillary refill Gastrointestinal: normal inspection, non tender, soft Rectal: hemorrhoids - external non bleeding non thrombosed Genitourinary: no CVA tenderness Musculoskeletal: back normal Neurologic: normal inspection, alert, oriented x3 Psychiatric: normal inspection, judgement/insight normal Skin: no rash, palpation normal Lymphatic: normal inspection, no adenopathy Medical Decision Making PA Attestation All my diagnosis and treatment plans were reviewed ad discussed with my supervising physician Dr. Trejo Diagnostic Impression: Primary Impression: External hemorrhoid ER Course 79-year-old female with history of hypertension currently controlled with medication here complaining of pain and irritation around the anal area. Patient reports that she has history of constipation and has had hemorrhoids in the past however dysuria the first time that it is external and hurting. Patient had a colonoscopy done a year ago and was diagnosed with both internal and external hemorrhoids otherwise colonoscopy was within normal limits. Patient has a rail splitter that follows up with. Patient denies any bleeding from the rectum, rating the pain 7 out of 10 upon palpation and pressure. Denies pain radiation, denies saddle paresthesia and tingling and numbness. Patient reports that he does not have a good diet containing lots of fiber and usually eats fast food as she lives in her car and does not have options. Denies fever and chills, abdominal pain, nausea vomiting, chest pain, shortness of breath, palpitation and all other associated symptoms. Ddx considered but are not limited to: External hemorrhoid thrombosed, external hemorrhoid nonthrombosed, internal hemorrhoid, perianal abscess Vital signs: are WNL, pt. is afebrile H&PE are most consistent with: External hemorrhoid non-thrombosed ORDERS: Anusol rectal cream, prednisone, Colace ED INTERVENTIONS: None required at this time. DISCHARGE: At this time pt. is stable for d/c to home. Will provide printed patient care instructions, and any necessary prescriptions. Care plan and follow up instructions have been discussed with the patient prior to discharge. At this time patient to be discharged and follow with a rail splitter since she is up-to-date with her latest colonoscopy being done last year and only diagnosed with internal and external hemorrhoids no further investigation needed however to follow-up with a rail splitter for further assessment of hemorrhoids increase fiber intake and fluid intake. return to ER if rectal bleeding, fever and chills, abdominal pain worsening symptoms. Last Vital Signs Date Time Temp Pulse Resp B/P (MAP) Pulse Ox O2 Delivery O2 Flow Rate FiO2 04/21/19 12:19 98.2 74 16 148/84 (105) 99 Room Air Disposition: HOME, SELF-CARE Condition: Stable Scripts Docusate Sodium* (COLACE*) 100 Mg Capsule 100 MG ORAL TWICE A DAY, #20 CAP Prov: Yoni Pearson 04/21/19 Prednisone* (PREDNISONE*) 10 Mg Tablet 10 MG ORAL BID for 5 Days, #10 TAB 0 Refills Prov: Yoni Pearson 04/21/19 Hydrocortisone Hc 2.5% Cream (ANUSOL-HC 2.5% CREAM) Y Cr 2 GM RC TID, #28 GM Prov: Yoni Pearson 04/21/19 Patient Instructions: Hemorrhoids, [id number] Additional Instructions: Increase fiber intake, take medication as directed follow-up with a rail splitter since you just had a colonoscopy a year ago and everything was normal at an internal/external hemorrhoid no further assessment or imaging needed at this time. Yoni Pearson Apr 21, 2019 12:36
[2019-04-21] MEDS ORDERED: COLACE100 MG ORAL (12:38)
[2019-04-21] MEDS ORDERED: ANUSOL-HC30 GM RC (12:38)
[2019-04-21] MEDS ORDERED: PREDNISONE10 MG ORAL (12:38)
[2019-04-21 12:44] VITALS: BP 148/84
--- NOTE | 2019-04-21 12:45 | NUR ---
ER DISCHARGE NOTE: Patient is cleared to be discharged per ERMD, pt is aox4, on room air, with stable vital signs. pt was given dc and prescription instructions, pt was able to verbalize understanding, pt id band removed. pt is able to ambulate with steady gait. pt took all belongings.
== END 2019-04-21 12:44 | disposition home or self-care (01) ==
LOC: EMR 12:42
DX: K64.4 Residual hemorrhoidal skin tags (principal); I10 Essential (primary) hypertension; Z91.041 Radiographic dye allergy status; Z91.048 Other nonmedicinal substance allergy status
CPT/HCPCS: 99282

== ENCOUNTER 2019-04-30 14:36 | Emergency (ER) | payer MEDICARE, OTHER ==
[~2019-04-30] VITALS: Ht 165.1 cm; Wt 88.5 kg
[~2019-04-30 14:36] MED LIST changes: +ANUSOL-HC30 GM RC; +COLACE100 MG ORAL; +PREDNISONE10 MG ORAL
--- NOTE | 2019-04-30 14:51 | NUR ---
ED Nurse Note:pt. came with general wearness and headache, she is ambulatory, A/Ox4 no signs of distress noted
[2019-04-30 15:11] VITALS: BP 113/67
[2019-04-30 15:14] LABS: APPEARANCE,URINE CLEAR; BILIRUBIN, URINE NEGATIVE (NEGATIVE); COLOR,URINE PALE YELLOW; GLUCOSE, URINE (UA) NEGATIVE (NEGATIVE); KETONES,URINE NEGATIVE (NEGATIVE); LEUKOCYTE ESTERASE ,URINE 1+ (NEGATIVE); NITRITE,URINE NEGATIVE (NEGATIVE); PH,URINE 6.5 (4.5-8.0); PROTEIN,URINE NEGATIVE (NEGATIVE); UROBILINOGEN,URINE NORMAL MG/DL (0.0-1.0)
[2019-04-30 15:20] LABS: HEMATOCRIT 43.4 % (37.0-47.0); HEMOGLOBIN 13.4 G/DL (12.0-16.0); LYMPHOCYTES % (AUTO) 39.1 % (20.0-45.0); MEAN CORPUSCULAR VOLUME 90 FL (80-99); MONOCYTES % (AUTO) 8.1 % (1.0-10.0); NEUTROPHILS % (AUTO) 48.8 % (45.0-75.0); PLATELET COUNT 299 K/UL (150-450); RED BLOOD COUNT 4.81 M/UL (4.20-5.40); RED CELL DISTRIBUTION WIDTH 11.8 % (11.6-14.8); WHITE BLOOD COUNT 11.7 K/UL (4.8-10.8)
[2019-04-30 15:23] LABS: ANION GAP 5 mmol/L (5-15); BLOOD UREA NITROGEN 22 mg/dL (7-18); CALCIUM 10.2 MG/DL (8.5-10.1); CARBON DIOXIDE 31 MMOL/L (21-32); CHLORIDE 101 MMOL/L (98-107); CREATININE 1.7 MG/DL (0.55-1.30); POTASSIUM 4.4 MMOL/L (3.5-5.1); SODIUM 137 MMOL/L (136-145)
[2019-04-30 15:26] LABS: ALANINE AMINOTRANSFERASE 14 U/L (12-78); ALKALINE PHOSPHATASE 92 U/L (46-116); ASPARTATE AMINO TRANSFERASE 13 U/L (15-37); BILIRUBIN,TOTAL 0.8 MG/DL (0.2-1.0)
--- NOTE | 2019-04-30 16:06 | NUR ---
ED Nurse Note:blood and urine sent to labs
[2019-04-30 16:34] VITALS: BP 105/50
--- NOTE | 2019-04-30 17:05 | NUR ---
ER DISCHARGE NOTE: Patient is cleared to be discharged per ERMD, pt is aox4, on room air, with stable vital signs. pt was given dc and prescription instructions, pt was able to verbalize understanding, pt id band and iv site removed without complications. pt is able to ambulate with steady gait. pt took all belongings.
[2019-04-30 18:06] VITALS: BP 105/50
--- NOTE | 2019-04-30 18:51 | Emergency Room Report ---
History of Present Illness General Chief Complaint: Generalized Weakness Source: Patient Present Illness HPI 79-year-old female presents ED for evaluation. Complaining of dizziness for the last few days. States that she was seen here on 04/21 for constipation. Prescribed stool softeners. States that she is been having frequent bowel movements since many of which are watery/loose. Denies any abdominal pain. Denies any nausea or vomiting. Denies fevers or chills. Denies chest pain or shortness of breath. No other aggravating relieving factors. Denies any other associated symptoms Allergies: Coded Allergies: Cat Dander (Verified Allergy, Severe, 02/19/19) SHORTNESS OF BREATH, THROAT CLOSING, LIPS SWELLING IODINE (Verified Allergy, Intermediate, 02/19/19) NECK SWELLING Patient History Past Medical History: HTN, asthma Past Surgical History: other - abd surgery Pertinent Family History: none Social History: Denies: smoking, alcohol use, drug use Now: No Immunizations: UTD Reviewed Nursing Documentation: PMH: Agreed; PSxH: Agreed Nursing Documentation-PMH Hx Cardiac Problems: Yes - Left shoulder surgery Hx Hypertension: Yes Hx Pacemaker: No Hx Asthma: Yes Hx COPD: No Hx Diabetes: No Hx Cancer: No Hx Gastrointestinal Problems: Yes - Colon surgery 1998 (due to diverticulitis) , hemorrhoid Hx Dialysis: No Hx Neurological Problems: Yes Hx Cerebrovascular Accident: No Hx Seizures: No Hx Headaches: Yes - MIGRAINE Review of Systems All Other Systems: negative except mentioned in HPI Physical Exam Vital Signs Date Time Temp Pulse Resp B/P (MAP) Pulse Ox O2 Delivery O2 Flow Rate FiO2 04/30/19 14:40 97.9 66 17 113/67 (82) 97 Room Air Sp02 EP Interpretation: reviewed, normal General Appearance: no apparent distress, alert, GCS 15, non-toxic Head: normocephalic, atraumatic Eyes: bilateral eye normal inspection, bilateral eye PERRL ENT: hearing grossly normal, normal pharynx, no angioedema, normal voice Neck: full range of motion, supple/symm/no masses Respiratory: chest non-tender, lungs clear, normal breath sounds, speaking full sentences Cardiovascular #1: regular rate, rhythm, no edema Cardiovascular #2: 2+ carotid (R), 2+ carotid (L), 2+ radial (R), 2+ radial (L) , 2+ dorsalis pedis (R), 2+ dorsalis pedis (L) Gastrointestinal: normal bowel sounds, non tender, soft, non-distended, no guarding, no rebound Rectal: deferred Genitourinary: normal inspection, no CVA tenderness Musculoskeletal: back normal, gait/station normal, normal range of motion, non- tender Neurologic: alert, oriented x3, responsive, motor strength/tone normal, sensory intact, speech normal Psychiatric: judgement/insight normal, memory normal, mood/affect normal, no suicidal/homicidal ideation Reflexes: 3+ bicep (R), 3+ bicep (L), 3+ tricep (R), 3+ tricep (L), 3+ knee (R) , 3+ knee (L) Lymphatic: no adenopathy Medical Decision Making Diagnostic Impression: Primary Impression: Renal insufficiency Additional Impression: Diarrhea Qualified Codes: R19.7 - Diarrhea, unspecified ER Course Hospital Course 79 yo F presents with diarrhea x 1 week after starting stool softeners. c/o dizziness and weakness differential diagnosis: gastritis, SBO, cholecystits, gastroenteritis Clinical course Patient placed on stretcher. On manager monitoring. After initial history and physical I ordered labs, IV fluids, EKG Labs - no leukocytosis, Cr 1.7, hb/hct stable EKG - NSR, no acute ischemic changes interpreted by me On recent ED visits creatinine within normal limits. Patient feels better after 2 L IV fluids. Discussed with PMD Dr. Verdugo; the patient can be safely discharged back to home and he will see this week in his office. discussed with patient. Encourage hydration and to stop the stool softeners. Patient agrees with plan. I feel this is a highly complex case requiring extensive working including EKG/ Rhythm strip, Xray/CT/US, Blood/urine lab work, repeat exams while in ED, and administration of strong opiates/narcotics for pain control, admission to hospital or close patient follow up. Diagnosis - renal insufficiency, diarrhea Stable and discharged to home. stop stool softeners. followup with PMD. Return to ED if symptoms recur or worsen Labs Test 04/30/19 15:00 White Blood Count 11.7 K/UL (4.8-10.8) Red Blood Count 4.81 M/UL (4.20-5.40) Hemoglobin 13.4 G/DL (12.0-16.0) Hematocrit 43.4 % (37.0-47.0) Mean Corpuscular Volume 90 FL (80-99) Mean Corpuscular Hemoglobin 27.9 PG (27.0-31.0) Mean Corpuscular Hemoglobin Concent 30.9 G/DL (32.0-36.0) Red Cell Distribution Width 11.8 % (11.6-14.8) Platelet Count 299 K/UL (150-450) Mean Platelet Volume 6.3 FL (6.5-10.1) Neutrophils (%) (Auto) 48.8 % (45.0-75.0) Lymphocytes (%) (Auto) 39.1 % (20.0-45.0) Monocytes (%) (Auto) 8.1 % (1.0-10.0) Eosinophils (%) (Auto) 3.0 % (0.0-3.0) Basophils (%) (Auto) 1.0 % (0.0-2.0) Urine Color Pale yellow Urine Appearance Clear Urine pH 6.5 (4.5-8.0) Urine Specific [place] 1.010 (1.005-1.035) Urine Protein Negative (NEGATIVE) Urine Glucose (UA) Negative (NEGATIVE) Urine Ketones Negative (NEGATIVE) Urine Blood Negative (NEGATIVE) Urine Nitrite Negative (NEGATIVE) Urine Bilirubin Negative (NEGATIVE) Urine Urobilinogen Normal MG/DL (0.0-1.0) Urine Leukocyte Esterase 1+ (NEGATIVE) Urine RBC 0-2 /HPF (0 - 2) Urine WBC 0-2 /HPF (0 - 2) Urine Squamous Epithelial Cells Few /LPF (NONE/OCC) Urine Bacteria Few /HPF (NONE) Sodium Level 137 MMOL/L (136-145) Potassium Level 4.4 MMOL/L (3.5-5.1) Chloride Level 101 MMOL/L (98-107) Carbon Dioxide Level 31 MMOL/L (21-32) Anion Gap 5 mmol/L (5-15) Blood Urea Nitrogen 22 mg/dL (7-18) Creatinine 1.7 MG/DL (0.55-1.30) Estimat Glomerular Filtration Rate mL/min (>60) Glucose Level 114 MG/DL (74-106) Calcium Level 10.2 MG/DL (8.5-10.1) Total Bilirubin 0.8 MG/DL (0.2-1.0) Aspartate Amino Transf (AST/SGOT) 13 U/L (15-37) Alanine Aminotransferase (ALT/SGPT) 14 U/L (12-78) Alkaline Phosphatase 92 U/L (46-116) Total Protein 8.1 G/DL (6.4-8.2) Albumin 4.0 G/DL (3.4-5.0) Globulin 4.1 g/dL Albumin/Globulin Ratio 1.0 (1.0-2.7) Lipase 267 U/L (73-393) EKG Diagnostic Results Rate: normal Rhythm: NSR ST Segments: no acute changes ASA given to the pt in ED: No Rhythm Strip Diag. Results EP Interpretation: yes Rhythm: NSR, no PVC's, no ectopy Last Vital Signs Date Time Temp Pulse Resp B/P (MAP) Pulse Ox O2 Delivery O2 Flow Rate FiO2 04/30/19 18:06 97.9 69 17 105/50 99 Room Air Status: improved Disposition: HOME, SELF-CARE Condition: Stable Patient Instructions: Diarrhea, Adult, [id number] Additional Instructions: stop taking stool softeners. followup with your PMD Kevin Cramer MD Apr 30, 2019 18:51
--- NOTE | 2019-05-01 13:58 | Cardiology Report ---
APPROVED REPORT EKG Measurement Heart [id number] Normal sinus rhythm Normal ECG
== END 2019-04-30 17:05 | disposition home or self-care (01) ==
LOC: EMR 15:17
DX: N28.9 Disorder of kidney and ureter, unspecified (principal); R19.7 Diarrhea, unspecified; Z91.041 Radiographic dye allergy status; Z91.09 Other allergy status, other than to drugs and biological substances; I10 Essential (primary) hypertension
CPT/HCPCS: 36415; 80053; 81003; 83690; 85025; 93005; 96360; 96361; 99284

== ENCOUNTER 2019-06-04 12:47 | Outpatient (CLI) | payer MEDICARE ==
[2019-06-04 14:58] VITALS: BP 143/73
--- NOTE | 2019-06-14 14:52 | General Progress Note ---
Assessment/Plan Assessment/Plan: Assessment/Plan Problems: (1) GERD (gastroesophageal reflux disease) ICD Codes: K21.9 - GERD (gastroesophageal reflux disease) SNOMED: 828179378 (2) Gastritis ICD Codes: K29.70 - Gastritis, unspecified, without bleeding SNOMED: 0315158 (3) Anxiety ICD Codes: F41.9 - Anxiety disorder, unspecified SNOMED: 00409436 (4) Constipation ICD Codes: K59.00 - Constipation SNOMED: 88480914 (5) Fatty liver ICD Codes: K76.0 - Fatty (change of) liver, not elsewhere classified SNOMED: 557296978 (6) HTN (hypertension) ICD Codes: I10 - HTN (hypertension) SNOMED: 56266143 Assessment/Plan colonoscopy 03/27/2018 SUMMARY OF FINDINGS: 1. Right-sided diverticulosis. 2. One rectal polyp, removed. 3. Internal hemorrhoids. treat for hemorrhoids no constipation now repeat colon in 2022 Subjective ROS Limited/Unobtainable: Yes Allergies: Coded Allergies: Cat Dander (Verified Allergy, Severe, 02/19/19) SHORTNESS OF BREATH, THROAT CLOSING, LIPS SWELLING IODINE (Verified Allergy, Intermediate, 02/19/19) NECK SWELLING Objective General Appearance: alert EENT: normal ENT inspection Neck: supple Cardiovascular: normal rate Respiratory/Chest: decreased breath sounds Abdomen: normal bowel sounds, non tender, soft Extremities: non-tender Ignacio Olson MD Jun 14, 2019 14:52
== END 2019-06-04 14:47 | disposition home or self-care (01) ==
LOC: PAN 12:47
DX: K21.9 Gastro-esophageal reflux disease without esophagitis (principal); K29.70 Gastritis, unspecified, without bleeding; F41.9 Anxiety disorder, unspecified; K59.00 Constipation, unspecified; K76.0 Fatty (change of) liver, not elsewhere classified; I10 Essential (primary) hypertension; K57.90 Diverticulosis of intestine, part unspecified, without perforation or abscess without bleeding; K64.8 Other hemorrhoids; Z87.19 Personal history of other diseases of the digestive system; Z91.041 Radiographic dye allergy status; Z91.048 Other nonmedicinal substance allergy status
CPT/HCPCS: 99212

== ENCOUNTER 2019-12-11 14:42 | Emergency (ER) | payer MEDICARE, OTHER ==
[~2019-12-11] VITALS: Ht 166.4 cm; Wt 88.5 kg
[2019-12-11] MEDS ORDERED: Ipratropium 0.02% Inh Soln 2.5ml UD HHN ONE (15:30)
[2019-12-11] MEDS ORDERED: Albuterol ud Inhalation HHN ONE (15:30)
[2019-12-11 16:01] LABS: BASOPHILS % (AUTO) 2.8 % (0.0-2.0); HEMATOCRIT 43.7 % (37.0-47.0); HEMOGLOBIN 13.4 G/DL (12.0-16.0); LYMPHOCYTES % (AUTO) 32.8 % (20.0-45.0); MEAN CORPUSCULAR VOLUME 90 FL (80-99); MONOCYTES % (AUTO) 10.9 % (1.0-10.0); NEUTROPHILS % (AUTO) 50.4 % (45.0-75.0); PLATELET COUNT 257 K/UL (150-450); RED BLOOD COUNT 4.85 M/UL (4.20-5.40); RED CELL DISTRIBUTION WIDTH 13.6 % (11.6-14.8); WHITE BLOOD COUNT 7.1 K/UL (4.8-10.8)
[2019-12-11 16:07] LABS: ANION GAP 10 mmol/L (5-15); BLOOD UREA NITROGEN 30 mg/dL (7-18); CARBON DIOXIDE 30 MMOL/L (21-32); CHLORIDE 102 MMOL/L (98-107); CREATININE 2.1 MG/DL (0.55-1.30); POTASSIUM 4.5 MMOL/L (3.5-5.1); SODIUM 142 MMOL/L (136-145)
--- NOTE | 2019-12-11 16:14 | Diagnostic Imaging Report ---
Indication: Dyspnea Comparison: 08/17/2018 A single view chest radiograph was obtained. Findings: No definite infiltrate or pulmonary vascular congestion identified. The heart is enlarged. The aorta is mildly enlarged consistent with atherosclerotic vascular disease. The bones are osteopenic. There are thoracic vertebral enthesophytes at multiple levels. Impression: No acute disease
[2019-12-11 16:18] LABS: ALANINE AMINOTRANSFERASE 22 U/L (12-78); ALBUMIN 4.1 G/DL (3.4-5.0); ALBUMIN/GLOBULIN RATIO 1.2 (1.0-2.7); ALKALINE PHOSPHATASE 110 U/L (46-116); ASPARTATE AMINO TRANSFERASE 16 U/L (15-37); BILIRUBIN,TOTAL 0.6 MG/DL (0.2-1.0)
[2019-12-11] MEDS ORDERED: ALBUTEROL SULF8.5 GM INH (16:39)
[2019-12-11] MEDS ORDERED: AMOXICILLIN500 MG ORAL (16:39)
[2019-12-11] MEDS ORDERED: PREDNISONE20 MG ORAL (16:39)
[2019-12-11] MEDS ORDERED: PROMETHAZINE-D118 ML ORAL (16:39)
[2019-12-11 16:43] VITALS: BP 110/54
--- NOTE | 2019-12-11 18:21 | Emergency Room Report ---
History of Present Illness General Chief Complaint: General Complaint Source: Patient, Medical Record Present Illness HPI 79-year-old female presents ED for evaluation. States that she has pain across her chest radiating to her back x1 week. Dull, 5 out of 10. Also notes chest tightness and cough. History of COPD. Cough is dry. Denies fevers or chills. States she feels weak. Denies sick contacts or recent travel. No other aggravating relieving factors. Denies any other associated symptoms Allergies: Coded Allergies: Cat Dander (Verified Allergy, Severe, 02/19/19) SHORTNESS OF BREATH, THROAT CLOSING, LIPS SWELLING IODINE (Verified Allergy, Intermediate, 02/19/19) NECK SWELLING Patient History Past Medical History: HTN, asthma, COPD Past Surgical History: other - Left shoulder surgery Pertinent Family History: none Social History: Denies: smoking, alcohol use, drug use Now: No Immunizations: UTD Reviewed Nursing Documentation: PMH: Agreed; PSxH: Agreed Nursing Documentation-PMH Past Medical History: No History, Except For Hx Cardiac Problems: Yes - Left shoulder surgery Hx Hypertension: Yes Hx Pacemaker: No Hx Asthma: Yes Hx COPD: No Hx Diabetes: No Hx Cancer: No Hx Gastrointestinal Problems: Yes - Colon surgery 1998 (due to diverticulitis) , hemorrhoid Hx Dialysis: No Hx Neurological Problems: Yes Hx Cerebrovascular Accident: No Hx Seizures: No Hx Headaches: Yes - MIGRAINE Review of Systems All Other Systems: negative except mentioned in HPI Physical Exam Vital Signs Date Time Temp Pulse Resp B/P (MAP) Pulse Ox O2 Delivery O2 Flow Rate FiO2 12/11/19 14:47 98.1 68 18 105/66 (79) 96 Room Air 12/11/19 15:29 21 Sp02 EP Interpretation: reviewed, normal General Appearance: no apparent distress, alert, GCS 15, non-toxic Head: normocephalic, atraumatic Eyes: bilateral eye normal inspection, bilateral eye PERRL ENT: hearing grossly normal, normal pharynx, no angioedema, normal voice Neck: full range of motion, supple/symm/no masses Respiratory: chest non-tender, decreased breath sounds, speaking full sentences Cardiovascular #1: regular rate, rhythm, no edema Cardiovascular #2: 2+ carotid (R), 2+ carotid (L), 2+ radial (R), 2+ radial (L) , 2+ dorsalis pedis (R), 2+ dorsalis pedis (L) Gastrointestinal: normal bowel sounds, non tender, soft, non-distended, no guarding, no rebound Rectal: deferred Genitourinary: normal inspection, no CVA tenderness Musculoskeletal: back normal, normal range of motion, gait/station normal, non- tender Neurologic: alert, motor strength/tone normal, oriented x3, sensory intact, responsive, speech normal Psychiatric: judgement/insight normal, memory normal, mood/affect normal, no suicidal/homicidal ideation Reflexes: 3+ bicep (R), 3+ bicep (L), 3+ tricep (R), 3+ tricep (L), 3+ knee (R) , 3+ knee (L) Skin: no rash Lymphatic: no adenopathy Medical Decision Making Diagnostic Impression: Primary Impression: COPD (chronic obstructive pulmonary disease) Qualified Codes: J44.9 - Chronic obstructive pulmonary disease, unspecified ER Course Hospital Course 79-year-old female presents with weakness, shortness of breath. History of COPD Differential diagnoses include: URI, bronchitis, asthma/COPD, pneumonia Clinical course Patient placed on stretcher. After initial history, physical exam reveals an elderly female in no acute distress. Bilateral TM unremarkable. No pharyngeal erythema. No tonsillar exudates. No lymphadenopathy. reduced breath sounds bilaterally I ordered labs, IV fluids, nebs, CXR, chest x-ray. Labs reviewed- no leukocytosis, hemoglobin/hematocrit stable, Cr 2.1, trop negative, influenza negative EKG - NSR, no acute ischemic changes interpreted by me Chest x-ray shows no infiltrate I discussed findings with patient. Patient has history of CKD. Feels better. Afebrile. Nontoxic-appearing. We can discharge to home with prescription for antibiotics, steroids, cough medication. Discussed with PMD Dr. Amanda and he agrees with plan Diagnosis - COPD Stable and discharged home with prescriptions for amoxicillin, promethazine, prednisone, albuterol. Instructed to followup with PMD. Return to ED if symptoms recur or worsen Labs Test 12/11/19 15:35 White Blood Count 7.1 K/UL (4.8-10.8) Red Blood Count 4.85 M/UL (4.20-5.40) Hemoglobin 13.4 G/DL (12.0-16.0) Hematocrit 43.7 % (37.0-47.0) Mean Corpuscular Volume 90 FL (80-99) Mean Corpuscular Hemoglobin 27.7 PG (27.0-31.0) Mean Corpuscular Hemoglobin Concent 30.8 G/DL (32.0-36.0) Red Cell Distribution Width 13.6 % (11.6-14.8) Platelet Count 257 K/UL (150-450) Mean Platelet Volume 8.1 FL (6.5-10.1) Neutrophils (%) (Auto) 50.4 % (45.0-75.0) Lymphocytes (%) (Auto) 32.8 % (20.0-45.0) Monocytes (%) (Auto) 10.9 % (1.0-10.0) Eosinophils (%) (Auto) 3.0 % (0.0-3.0) Basophils (%) (Auto) 2.8 % (0.0-2.0) Sodium Level 142 MMOL/L (136-145) Potassium Level 4.5 MMOL/L (3.5-5.1) Chloride Level 102 MMOL/L (98-107) Carbon Dioxide Level 30 MMOL/L (21-32) Anion Gap 10 mmol/L (5-15) Blood Urea Nitrogen 30 mg/dL (7-18) Creatinine 2.1 MG/DL (0.55-1.30) Estimat Glomerular Filtration Rate 27.5 mL/min (>60) Glucose Level 101 MG/DL (74-106) Calcium Level 10.0 MG/DL (8.5-10.1) Total Bilirubin 0.6 MG/DL (0.2-1.0) Aspartate Amino Transf (AST/SGOT) 16 U/L (15-37) Alanine Aminotransferase (ALT/SGPT) 22 U/L (12-78) Alkaline Phosphatase 110 U/L (46-116) Troponin I 0.003 ng/mL (0.000-0.056) Pro-B-Type Natriuretic Peptide 104 pg/mL (0-125) Total Protein 7.6 G/DL (6.4-8.2) Albumin 4.1 G/DL (3.4-5.0) Globulin 3.5 g/dL Albumin/Globulin Ratio 1.2 (1.0-2.7) EKG Diagnostic Results Rate: normal Rhythm: NSR ST Segments: no acute changes ASA given to the pt in ED: No Rhythm Strip Diag. Results EP Interpretation: yes Rhythm: NSR, no PVC's, no ectopy Chest X-Ray Diagnostic Results Chest X-Ray Diagnostic Results : Chest X-Ray Ordered: Yes # of Views/Limited/Complete: 1 View Indication: Shortness of Breath Interpretation: no consolidation, no effusion, no pneumothorax, no acute cardiopulmonary disease Impression: No acute disease Last Vital Signs Date Time Temp Pulse Resp B/P (MAP) Pulse Ox O2 Delivery O2 Flow Rate FiO2 12/11/19 16:43 78 20 110/54 99 Room Air 12/11/19 15:29 21 12/11/19 14:47 98.1 Status: improved Disposition: HOME, SELF-CARE Condition: Stable Scripts Prednisone* (PREDNISONE*) 20 Mg Tablet 40 MG ORAL DAILY, #10 TAB Prov: Kevin Cramer MD 12/11/19 D-Methorphan Hb/Prometh Hcl* (PROMETHAZINE-DM SYRUP*) 118 Ml Syrup 5 ML ORAL Q6H PRN for For Cough, #118 ML 0 Refills Prov: Kevin Cramer MD 12/11/19 Albuterol Sulfate* (ALBUTEROL SULFATE MDI*) 8.5 Gm Hfa.aer.ad 2 PUFF INH Q6H, #1 EA 0 Refills Prov: Kevin Cramer MD 12/11/19 Amoxicillin* (AMOXIL*) 500 Mg Capsule 500 MG ORAL THREE TIMES A DAY, #21 CAP Prov: Kevin Cramer MD 12/11/19 Patient Instructions: Chronic Obstructive Pulmonary Disease, [id number] Kevin Cramer MD Dec 11, 2019 18:21
== END 2019-12-11 16:40 | disposition home or self-care (01) ==
LOC: EMR 15:10
DX: J44.9 Chronic obstructive pulmonary disease, unspecified (principal); Z91.041 Radiographic dye allergy status; K57.90 Diverticulosis of intestine, part unspecified, without perforation or abscess without bleeding; I12.9 Hypertensive chronic kidney disease with stage 1 through stage 4 chronic kidney disease, or unspecified chronic kidney disease; N18.9 Chronic kidney disease, unspecified
CPT/HCPCS: 36415; 71045; 80053; 83880; 84484; 85025; 86710; 93005; 99284; J7040